=== PATIENT | female | born 1960 | race Caucasian/White ===

== ENCOUNTER 2024-06-13 01:27 | Day surgery (SDC) | payer MEDICARE, SELFPAY ==
[2024-06-07 10:14] VITALS: BMI 24.9
--- NOTE | 2024-06-07 10:29 | PC.NURSE ---
Addendum entered by Erma Calderón RN 06/07/24 10:39: Pt stated that Dr Gar aware pt had recent OH and is on DAPT and is ok to continue those meds for this procedure- she will not take them morning of, but will when she gets home. RADHA Original Note: Report to the Outpatient Waiting Room, entrance under the green pavilion located off [facility], at time ____0630am___ on date _06/13/24 . Planned Procedure Time: __0830am .? Time changes happen often and if your time is changed the preop area will call you the afternoon before. - You and your visitor will be asked to self-screen and do not enter if you have any COVID symptoms. Please call surgeon if you need to reschedule. - A mask is optional within the hospital at this time. Patients may have clear liquids (water, carbonated beverages, clear teas, apple juice) until 3 hours prior to surgery with a maximum of 20 ounces. - No food from midnight until time of surgery and no smoking. This includes no chewing gum, candy or mints.(0530am) Take only the following medications with a SIP of water on the morning of surgery: __Metoprolol and Lexapro, Tylenol if needed DO NOT STOP ANY OF YOUR OTHER PRESCRIPTION MEDICATIONS PRIOR TO SURGERY EXCEPT THE FOLLOWING Medications to discontinue per physician Hold MVI 3 days prior per Anesthesia Date to take last dose__06/09/24 Please no make-up, nail faroese, hairspray, perfume, deodorant, or body powder the day of surgery.? No jewelry (including any body piercings) or valuables the day of surgery, leave them at home.? Please take a shower or bath the night before, or the morning of, surgery with an antibacterial soap.? Wear comfortable, loose fitting clothing.? - Jewelry must be removed prior to entering the operating room.? Rings and piercings that are not removed may be cut off. - The hospital will not accept responsibility for valuables.? - Please leave all valuables, including medications, at home the day of surgery. If you are going home after surgery, a licensed four horse hitch driver must drive you home.? - NO public transportation without another adult if you receive anesthesia. - We recommend that an adult stay with you for 24 hours following discharge. - We also recommend that you do not drive, make important decision, drink alcoholic beverages, or take any drugs that were not prescribed by your health care provider for at least 24 hours after your discharge time. Follow any additional instructions given to you from your surgeon. Telephone instructions given to ___Patient and asked if any additional questions and then verbalized understanding. Patient advised to call surgeon office or pre surgery nurse liaison [phone] if any additional questions.
--- OUTSIDE RECORDS SUMMARY | 2024-06-13 01:34 | XMS_ITS | Encounter Summary ---
Author Organization [facility] Address [address] [place] [address]. [place] [address] [place] [address] Care Team Providers Care Dust Control Engineer Name Role Phone Carla Bunch MD Primary Care Provider [phone] Alejandra Monahan RN Unavailable [phone] Encounter Details Date Type Department Care Team (Latest Contact Info) Description 05/03/2023 [employer] Message Enc [facility] Medical Group Family & Internal Medicine [facility] [id number] [place] [phone] Carla Bunch MD [address] [place] [address]. [address] [place] [address] Escitalopram 10 MG daily. Social History Tobacco Use Types Packs/Day Years Used Date Smoking Tobacco: Never Smokeless Tobacco: Never Alcohol Use Standard Drinks/Week Comments Yes 0 (1 standard drink = 0.6 oz pur e alcohol) Occasionally - social AUDIT-C Answer Date Recorded Q1: How often do you have a drink containing alc ohol? Monthly or less 07/21/2020 Q2: How many drinks containi ng alcohol do you have on a typical day when you are drinking? 1 or 2 07/21/2020 Frequency of Binge Drinking Not on file 03/12/2020 PHQ-2 Answer Date Recorded Patient Health Questionnaire-2 Score 1 05/02/2023 Comments No Sex and Gender Information Value Date Recorded Sex Assigned at Not on file Legal Sex Female 8:27 PM CDT Gender Identity Not on file Sexual Orientation Not on file documented as of this encounter Functional Status * RETIRED Are you deaf or do you have serious difficulty hearing Answer Date of Assessment Author Status No 10/19/2021 6:06 AM CDT Activ e * RETIRED Are you blind or do you have serious difficulty seeing, even when wearing glasses? Answer Date of Assessment Author Status No 10/19/2021 6:06 AM CDT Activ e * Do you have serious difficulty walking or climbing stairs? Answer Date of Assessment Author Status No 10/19/2021 6:06 AM CDT Shannen Kingsley RN Active * Do you have difficulty dressing or bathing? Answer Date of Assessment Author Status No 10/19/2021 6:06 AM CDT Shannen Kingsley RN Active * Because of a physical, mental, or emotional condition, do you have difficulty doing errands alone such as visiting a doctor's office or shopping? Answer Date of Assessment Author Status No 10/19/2021 6:06 AM CDT Shannen Kingsley RN Active documented as of this encounter Mental Status * Because of a physical, mental, or emotional condition, do you have serious difficulty concentrating, remembering, or making decisions? Answer Entry Date Author Status No 10/19/2021 6:06 AM CDT Shannen Kingsley RN Active documented in this encounter Progress Notes * Kiana Hoang RN - 05/17/2023 10:23 AM CST Noted. UNT FINANCIAL MANAGER documented in this encounter Plan of Treatment Upcoming Encounters Date Type Department Care Team (Late st Contact Info) Description 06/29/2024 12:00 PM ACCOUNT FINANCIAL MANAGER Office Visit [facility] on [facility] [place] [address] [place], [place] [id number] Tiffany Olmos PA-C 3 [facility], [address] [place], [place] [id number] 07/11/2024 11:12 AM ACCOUNT FINANCIAL MANAGER Hospital Encounter [facility] [address] [place] [address] Rosalio Ordaz MD [address] [address] 07/11/2024 11:12 AM ACCOUNT FINANCIAL MANAGER - 07/11/2024 11:39 AM ACCOUNT FINANCIAL MANAGER Surgery [facility] [address] [place] [address] Rosalio Ordaz MD [address] [address] EGD 11/07/2024 10:00 AM CDT Office Visit [facility] Medical Group Family & Internal Medicine [address] [phone] [place] [address] [facility] [place]. [address] [place] [address] Scheduled Procedures Name Priority Associated Diagnoses Date/Ti me EGD Epigastric pain Nausea and vomiting, unspecified vomiting type Biliary colic 07/11/2024 11:12 AM ACCOUNT FINANCIAL MANAGER documented as of this encounter Visit Diagnoses Not on filedocumented in this encounter Additional Health Concerns Infection Onset Date Last Indicated Resolved Time COVID-19 Rule Out 05/05/2023 05/05/2023 05/05/2023 8:51 AM ACCOUNT FINANCIAL MANAGER COVID-19 Rule Out 05/05/2023 05/05/2023 05/05/2023 1:41 PM ACCOUNT FINANCIAL MANAGER Assessment Noted Time PHQ-9 Depression Total Score: 0 08/06/19 10:18 AM CDT documented as of this encounter Care Teams Dust Control Engineer Relationship Specialty [place] [address] [facility] [place] [address] PCP - General FAMILY PRACTICE 12/29/22 Alejandra Monahan, RN [address] [place] [address] Manager Dairy (Ambulatory) REGISTERED NURSE 03/20/24 documented as of this encounter
--- OUTSIDE RECORDS SUMMARY | 2024-06-13 01:34 | XMS_ITS | Encounter Summary ---
Author Organization [facility] Address [address] [place] [address]. [place] [address] [place] [address] Care Team Providers Care Direct Of Real Estate Name Role Phone Carla Bunch MD Primary Care Provider [phone] Alejandra Monahan RN Unavailable [phone] Encounter Details Date Type Department Care Team (Late st Contact Info) Description 07/20/2023 [employer] Message Enc [facility] Medical Group Family & Internal Medicine [facility] [id number] [place] [phone] Carla Bunch MD [address] [place] [address]. [address] [place] [address] BPs Social History Tobacco Use Types Packs/Day Years Used Date Smoking Tobacco: Never Passive Smoke Exposure: Never Smokeless Tobacco: Never Alcohol Use Standard [...] documented in this encounter Progress Notes * Antonella Bull NP - 07/20/2023 2:48 PM CST See attached. Thanks O INSTALLER AUTOMOBILE documented in this encounter Plan of Treatment Upcoming Encounters Date Type Department Care Team (Late st Contact Info) Description 06/29/2024 12:00 PM RADIO INSTALLER AUTOMOBILE Office Visit Brandi Pineda[facility] on [facility] [place] [address] [place], [place] [address] Tiffany Olmos PA-C 3 [facility], [address] [place], [place] [phone] 07/11/2024 11:12 AM RADIO INSTALLER AUTOMOBILE Hospital Encounter [facility] [address] [place] [address] Rosalio Ordaz MD [address] [address] 07/11/2024 11:12 AM RADIO INSTALLER AUTOMOBILE - 07/11/2024 11:39 AM RADIO INSTALLER AUTOMOBILE Surgery [facility] [address] [place] [address] Rosalio Ordaz MD [address] [address] EGD 11/07/2024 10:00 AM CDT Office Visit [facility] Medical Group Family & Internal Medicine - [place] [id number] [place] [phone] [place] [address] [facility]. [address] [place] [address] Scheduled Procedures Name Priority Associated Diagnoses Date/Ti me EGD Epigastric pain Nausea and vomiting, unspecified vomiting type Biliary colic 07/11/2024 11:12 AM RADIO INSTALLER AUTOMOBILE documented as of this encounter Visit Diagnoses Not on filedocumented in this encounter Additional Health Concerns Assessment Noted Time PHQ-9 Depression Total Score: 0 08/06/19 22 10:18 AM CDT documented as of this encounter Care Teams Direct Of Real Estate Relationship Specialty Start Date End Date Carla Bunch [place] [id number] [place] [address]. [address] [place] [address] PCP - General FAMILY PRACTICE 12/29/22 Alejandra Monahan, RN [address] [place] [address] Motor Bike Mechanic (Ambulatory) REGISTERED NURSE 03/20/24 documented as of this encounter
--- OUTSIDE RECORDS SUMMARY | 2024-06-13 01:34 | XMS_ITS | Encounter Summary ---
Author Organization [facility] Address [address] [place] [address]. [place] [address] [place] [address] Care Team Providers Care Small Order Cutter Name Role Phone Carla Bunch MD Primary Care Provider [phone] Encounter Details Date Type Department Care Team (Late st Contact Info) Description 06/07/2024 [employer] Message Enc [facility] Medical Group Family & Internal Medicine [facility] [phone] [place] [phone] Carla Bunch MD [address] [place] [address]. [address] [place] [address] Visit with Shrub Grower. Social History Tobacco Use Types Packs/Day Years Used Date Smoking Tobacco: Never Passive Smoke Exposure: Never Smokeless Tobacco: Never Alcohol Use Standard Drinks/Week Comments Yes 0 (1 standard drink = 0.6 oz pur e alcohol) 1 drink per week [facility] Utilities Answer Date Recorded In the past 12 months has e electric, gas, oil, or water [employer] threatened to shut off services in your home? No 03/19/2024 Humiliation, Afraid, Rape, and Kick questionnair e Answer Date Recorded Within the last year, have y ou been afraid of your partner or ex-partner? No 03/19/2024 Within the last year, have y ou been humiliated or emotionally abused in other ways by your partner or ex-partner? No Within the last year, have y ou been kicked, hit, slapped, or otherwise physically hurt by your partner or ex-partner? No 03/19/2024 Within the last year, have y ou been raped or forced to have any kind of sexual activity by your partner or ex-partner? No 03/19/2024 AUDIT-C Answer Date Recorded Q1: How often do you have a drink containing alc ohol? Monthly or less 07/21/2020 Q2: How many drinks containi ng alcohol do you have on a typical day when you are drinking? 1 or 2 07/21/2020 Frequency of Binge Drinking Not on file 12/2020 Overall Financial Resource Strain (CARDIA) Answe r Date Recorded How hard is it for you to pa y for the very basics like food, housing, medical care, and heating? Not hard at all 03/19/2024 PHQ-2 Answer Date Recorded Patient Health Questionnaire-2 Score 0 05/11/2024 Hunger Vital Sign Answer Date Recorded Within the past 12 months, y ou worried that your food would run out before you got the money to buy more. Never true 03/19/20 24 Within the past 12 months, t he food you bought just didn't last and you didn't have money to get more. Never true 03/19/2024 PRAPARE - Transportation Answer Date Re corded In the past 12 months, has l ack of transportation kept you from medical appointments or from getting medications? No 08/2023 In the past 12 months, has l ack of transportation kept you from meetings, work, or from getting things needed for daily living? No 03/19/2024 Housing Stability Vital Sign Answer Evan e Recorded In the last 12 months, was t here a time when you were not able to pay the mortgage or rent on time? No 03/19/2024 In the past 12 months, how m any times have you moved where you were living? 1 03/19/2024 At any time in the past 12 m [facility], were you homeless or living in a correction (including now)? No 03/19/2024 Comments No Sex and Gender Information Value Date Recorded Sex Assigned at Not on file Legal Sex Female 8:27 PM CDT Gender Identity Not on file Sexual Orientation Not on file documented as of this encounter Functional Status * Are you deaf or do you have serious difficulty hearing Answer Date of Assessment Author Status No 03/19/2024 5:07 PM Shara Noel RN Active * Are you blind or do you have serious difficulty seeing, even when wearing glasses? Answer Date of Assessment Author Status No 03/19/2024 5:07 PM Shara Noel RN Active * Do you have serious difficulty walking or climbing stairs? Answer Date of Assessment Author Status No 03/19/2024 5:07 PM Shara Noel RN Active * Do you have difficulty dressing or bathing? Answer Date of Assessment Author Status No 03/19/2024 5:07 PM Shara Noel RN Active * Because of a physical, mental, or emotional condition, do you have difficulty doing errands alone such as visiting a doctor's office or shopping? Answer Date of Assessment Author Status No 03/19/2024 5:07 PM Shara Noel RN Active documented as of this encounter Mental Status * Because of a physical, mental, or emotional condition, do you have serious difficulty concentrating, remembering, or making decisions? Answer Entry Date Author Status No 03/19/2024 5:07 PM Shara Noel RN Active documented in this encounter Plan of Treatment Upcoming Encounters Date Type Department Care Team (Late st Contact Info) Description 06/29/2024 12:00 PM AUTOMATIC PAD MAKING MACHINE OPERATOR Office Visit [facility] on [facility] [place] [address] [place] [address] Tiffany Olmos PA-C 3 [facility], [address] [place] [address] 07/11/2024 11:12 AM AUTOMATIC PAD MAKING MACHINE OPERATOR Hospital Encounter [facility] [address] [place] [address] Rosalio Ordaz MD 3 [facility] [address] [place] [address] 07/11/2024 11:12 AM AUTOMATIC PAD MAKING MACHINE OPERATOR - 07/11/2024 11:39 AM AUTOMATIC PAD MAKING MACHINE OPERATOR Surgery [facility] [address] [place] [address] Rosalio Ordaz MD [address] [address] EGD 11/07/2024 10:00 AM CDT Office Visit [facility] Medical Group Family & Internal Medicine - [place] [address] [place] [phone] [place] [address] [facility]. [address] [place] [address] Scheduled Procedures Name Priority Associated Diagnoses Date/Ti me EGD Epigastric pain Nausea and vomiting, unspecified vomiting type Biliary colic 07/11/2024 11:12 AM AUTOMATIC PAD MAKING MACHINE OPERATOR documented as of this encounter Visit Diagnoses Not on filedocumented in this encounter Additional Health Concerns Assessment Noted Time PHQ-9 Depression Total Score: 4 11/07/19 24 8:56 AM CDT documented as of this encounter Care Teams Small Order Cutter Relationship Specialty [place] [address] [facility]. [address] [place] [address] PCP - General FAMILY PRACTICE 12/29/22 documented as of this encounter
--- OUTSIDE RECORDS SUMMARY | 2024-06-13 01:34 | XMS_ITS | Clinical Summary ---
Author Organization [facility] Address [address] [place] [address]. [place] [address] [place] [address] Care Team Providers Care Biometry Teacher Name Role Phone Carla Grimes MD Primary Care Provider [phone] Allergies No known active allergies Medications Multiple Vitamins-Minerals (ALIVE ONCE DAILY WOMENS 50+ OR) Take 1 tablet by mouth daily. 08/14/19 21 Active docusate sodium (COLACE) 100 MG capsule Take 1 capsule (100 mg total) by mouth daily. 12/15/19 22 Active estradiol (ESTRACE) 1 MG tabletIndications :Menopause present Take 0.5 tablets (0.5 mg total) by mouth daily. 90 tablet 3 07/21/19 24 Active progesterone (PROMETRIUM) 100 MG capsuleIndication s:Menopause present Take 1 capsule (100 mg total) by mouth daily. 90 capsule 3 07/21/19 24 Active escitalopram (LEXAPRO) 10 MG tabletIndications :Depression with anxiety take 1 tablet by mouth every day 90 tablet 2 11/07/19 24 Active rizatriptan (MAXALT-SAXOPHONE TEACHER) 10 MG disintegrating tabletIndications :Periodic headache syndrome, not intractable Take 1 tablet (10 mg total) by mouth as needed for Migraine. May repeat in 2 hours if needed times one dose 27 tablet 3 11/07/19 24 Active acetaminophen CR (ACETAMINOPHEN 8 HOUR) 650 MG Tab CR 8 hr tablet Take 2 tablets (1,300 mg total) by mouth 2 (two) times a day. 01/25/20 24 Active metoprolol succinate ER (TOPROL-XL) 25 MG 24 hr tablet Take 1 tablet (25 mg total) by mouth daily. New dose 90 tablet 1 03/30/20 24 Active lisinopril (PRINIVIL) 10 MG tablet Take 1 tablet (10 mg total) by mouth every evening. 90 tablet 1 03/30/20 24 Active atorvastatin (LIPITOR) 40 MG tablet Take 1 tablet (40 mg total) by mouth nightly at bedtime. New dose 90 tablet 1 03/30/20 24 Active aspirin EC (ASPIRIN LOW DOSE) 81 MG tabletIndications :NSTEMI (non-ST elevated myocardial infarction) ([facility]) TAKE 1 TABLET BY MOUTH EVERY DAY 90 tablet 3 04/11/20 24 Active clopidogrel (PLAVIX) 75 MG tabletIndications :History of non-ST elevation myocardial infarction (NSTEMI) START IN MAY 2024. LOADING DOSE TAKE (300MG/ 4 TABLETS) THE FIRST DAY AND THEN 1 TABLET DAILY 95 tablet 06/05/19 25 Active ticagrelor (BRILINTA) 90 mg tablet Take 1 tablet (90 mg total) by mouth 2 (two) times daily. 60 tablet 1 03/30/20 24 025 Discontinued(Al ternate therapy) clopidogrel (PLAVIX) 75 MG tabletIndications :History of non-ST elevation myocardial infarction (NSTEMI) START IN MAY 2024. LOADING DOSE TAKE (300MG) THE FIRST DAY AND THEN 1 TABLET DAILY 34 tablet 05/11/20 24 025 Discontinued Active Problems Problem Noted Date Diagnosed Date Prediabetes 05/20/2024 History of non-ST elevation myocardial infarctio n (NSTEMI) 04/05/2024 Mild hyperlipidemia 03/30/2024 NSTEMI (non-ST elevated myoc ardial infarction) ([facility]) 03/19/2024 Epigastric pain 01/27/2024 Nausea and vomiting, unspecified vomiting type 0 01/27/2024 Biliary colic 01/27/2024 Small bowel obstruction ([facility]) 2021 Abdominal migraine, not intractable 04/05/2019 Microscopic hematuria 07/02/2014 Migraines 06/24/2014 Depression with anxiety 06/14/2013 Hypertension 06/14/2013 Resolved Problems Problem Noted Date Diagnosed Date Resolved Date Encounter for preventive health examination 12/14/2011 01/25/2020 Encounters Date Type Department Care Team Description 06/11/2024 Telephone [facility] Multispecialty Care - [facility] [address] [facility] [place] [address] Bradly Ordaz MD Prior Authorization ([id number]) 06/07/2024 MyChart Message Enc [facility] Internal Medicine [address] [address] Carla Grimes MD Visit with Vibration Analyst. 06/05/2024 [place] [address] Doretha Wayne RN 05/21/2024 12:14 PM PHARMACOEPIDEMIOLOGIST - 05/21/2024 11:59 PM PHARMACOEPIDEMIOLOGIST Hospital Encounter [facility] Ultrasound [address] [place] [address] Carla Grimes MD Discharge Disposition: Home or Self Care (Routine Discharge) 05/21/2024 Travel 05/14/2024 5:53 AM PHARMACOEPIDEMIOLOGIST - 05/14/2024 11:59 PM PHARMACOEPIDEMIOLOGIST Hospital Encounter [facility] Card[facility] Rehab [address] [place] [address] Marv Warren MD Discharge Disposition: Home or Self Care (Routine Discharge) 05/14/2024 Travel 05/11/2024 10:40 AM PHARMACOEPIDEMIOLOGIST Office Visit [facility] Family & Internal [address] [address] Carla Grimes MD Follow Up (6 month follow up. Concerns with discharge/blood vaginally since November ) 05/11/2024 [facility] [address] [place] [address] Ena Martinez RN Question 05/11/2024 Travel 05/07/2024 6:20 AM PHARMACOEPIDEMIOLOGIST - 05/07/2024 11:59 PM PHARMACOEPIDEMIOLOGIST Hospital Encounter [facility] [address] [place], [place] [address]Marv Minor MD Discharge Disposition: Home or Self Care (Routine Discharge) 05/07/2024 Travel 05/02/2024 6:17 AM PHARMACOEPIDEMIOLOGIST - 05/02/2024 11:59 PM PHARMACOEPIDEMIOLOGIST Hospital Encounter [facility] [address] [place], [place] [address]Marv Minor MD Discharge Disposition: Home or Self Care (Routine Discharge) 05/02/2024 Travel 04/30/2024 6:08 AM PHARMACOEPIDEMIOLOGIST - 04/30/2024 11:59 PM PHARMACOEPIDEMIOLOGIST Hospital Encounter [facility] [address] [place], [place] [address]Marv Minor MD Discharge Disposition: Home or Self Care (Routine Discharge) 04/30/2024 Travel 04/25/2024 6:07 AM PHARMACOEPIDEMIOLOGIST - 04/25/2024 11:59 PM PHARMACOEPIDEMIOLOGIST Hospital Encounter [facility] [address] [place], [place] [address]Marv Minor MD Discharge Disposition: Home or Self Care (Routine Discharge) 04/25/2024 Travel 04/23/2024 5:37 AM PHARMACOEPIDEMIOLOGIST - 04/23/2024 11:59 PM PHARMACOEPIDEMIOLOGIST Hospital Encounter [facility] [address] [place], [place] [address]Marv Minor MD Discharge Disposition: Home or Self Care (Routine Discharge) 04/23/2024 Travel 04/18/2024 5:52 AM PHARMACOEPIDEMIOLOGIST - 04/18/2024 11:59 PM PHARMACOEPIDEMIOLOGIST Hospital Encounter [facility] [address] [place], [place] [address]Marv Minor MD Discharge Disposition: Home or Self Care (Routine Discharge) 04/06/2024 [facility] [address] [facility] [address] [place] [phone] Bradly Ordaz MD Results 04/06/2024 MyChart Message Enc [facility]ty Care - [facility] [address] [facility] [address] [place] [phone] [facility] 04/04/2024 9:47 AM PHARMACOEPIDEMIOLOGIST - 04/04/2024 11:59 PM PHARMACOEPIDEMIOLOGIST Hospital Encounter [facility] [address] [place] [address] Bradly Ordaz MD Discharge Disposition: Home or Self Care (Routine Discharge) 04/04/2024 Travel 04/03/2024 [facility]phone [facility] [address] [place] [address] Marv Warren MD Surgical Clearance 04/01/2024 MyChart Message Enc [facility] [place] [address] [place] [phone] Bradly Ordaz MD Blood thinners 03/30/2024 11:00 AM PHARMACOEPIDEMIOLOGIST [facility] [address] [place] [address] Marv Warren MD Hospital Follow Up 03/30/2024 Travel 03/29/2024 3:20 PM PHARMACOEPIDEMIOLOGIST Office Visit [facility] Family [facility] Internal Medicine [facility] [address] [place] [phone] Carla Grimes MD [facility] 03/29/2024 8:15 AM PHARMACOEPIDEMIOLOGIST - 03/29/2024 11:59 PM PHARMACOEPIDEMIOLOGIST Hospital Encounter [facility] [address] [place], [place] [phone] Carla Grimes MD Discharge Disposition: Home or Self Care (Routine Discharge) 03/29/2024 Orders Only [facility] [address] [place] [address] Carla Grimes MD 03/29/2024 Travel 03/21/2024 MyChart Message Enc [facility] [address] [address] Bradly Ordaz MD Upcoming Abd Fluoro and EGD 03/21/2024 Patient Outreach [facility] [address] [address] Alejandra Monahan RN TCM (TCM MELINDA 03/19-03/20/24- NSTEMI) 03/20/2024 Scan [facility] Scanned, [facility] 03/20/2024 Patient Outreach [facility] [address] [phone] Alejandra Monahan RN Hospital Follow Up (TCM MELINDA admit 03/19/24- NSTEMI) 03/19/2024 8:55 AM PHARMACOEPIDEMIOLOGIST - 03/20/2024 12:01 PM PHARMACOEPIDEMIOLOGIST Hospital Encounter [facility] [place] [address] Carl Bradley MD Crawford, MD Feli Bernard Maaroof, MD Chest Pain Discharge Disposition: Home or Self Care (Routine Discharge) 03/19/2024 Travel 03/13/2024 Telephone [facility]pec[facility]ty Care - [facility] [address] [facility] [place] [address] Bradly Ordaz MD Results from Last 3 Months Immunizations Name Administration Dates Next Due FLUAD (IIV, Trivalent, 0.5 M L Pre-filled Syringe) 03/12/2024 Fluzone Adult - >Age 3 (Pref illed Syringe) 03/06/2019 Fluzone Adult Quad >3 Yrs (S thomas Dose Vial) 02/14/2020 Influenza (Generic) 02/20/2016,03/15/2015,2013 Influenza Adult (Generic) 04/04/2023,06/2021,03/25/2021,2016 MODERNA COVID-19 BIVALENT (1 2+), MRNA, LNP-S, PF 04/15/2022 MODERNA COVID-19 (12+), MRNA , LNP-S, PF, 50 MCG/0.5 ML (SPIKEVAX) 04/04/2023 PFIZER COVID-19 (SIMPSON CAP), MRNA, LNP-S, PF, 30 MCG/0.3 ML JAKE-SUCROSE, IM 09/05/2021 PFIZER COVID-19 (ORIGINAL FORMULATION, PURPLE CAP) mRNA, LNP-S, PF, 30 MCG/0.3 ML DOSE 02/23/2021,05/23/2020,05/02/2020 Pneumococcal (Prevnar 20) 05/11/2024 Prevnar(Pcv 7) 02/16/2023 Td (Tenivac) preservative free 05/17/2009 Tdap (Historical Only-select from magnify glass) 01/31/2020 Family History Medical History Relation Comments Cancer Father Diabetes Father Glaucoma Father Heart Disease Father Stent Hypertension Father COPD Mother Diabetes Mother Heart Disease Mother Hyperlipidemia Mother Hypertension Mother Stroke Mother Breast Cancer Neg Hx Relation Status Comments Father Mother Social History Tobacco Use Types Packs/Day Years Used Date Smoking Tobacco: Never Passive Smoke Exposure: Never Smokeless Tobacco: Never Tobacco Cessation:Counseling Given: Not Answered Alcohol Use Standard Drinks/Week Comments Yes 0 (1 standard drink = 0.6 oz pur e alcohol) 1 drink per week [facility] Utilities Answer Date Recorded In the past 12 months has e [employer], gas, oil, or water [employer] threatened to shut off services in your [...] any time in the past 12 [facility], were you homeless or living in a half-way (including now)? No 03/19/2024 Comments No Sex and Gender Information Value Date Recorded Sex Assigned at Not on file Legal Sex Female 8:27 PM CDT Gender Identity Not on file Sexual Orientation Not on file Last Filed Vital Signs Vital Sign Reading Time Taken Comments Blood Pressure 138/82 05/11/2024 10:26 AM PHARMACOEPIDEMIOLOGIST Pulse 62 05/11/2024 10:05 AM PHARMACOEPIDEMIOLOGIST Temperature 36.3 ??C (97.4 ??F) 05/11/2024 10:[address] Respiratory Rate 18 05/11/2024 10:05 AM PHARMACOEPIDEMIOLOGIST Oxygen Saturation 98% 05/11/2024 10:05 AM PHARMACOEPIDEMIOLOGIST Inhaled Oxygen Concentration - - Weight 68.8 kg (151 lb 9.6 oz) 05/11/2024 10:05 AM PHARMACOEPIDEMIOLOGIST Height 165.1 cm (5' 5 ) 05/11/2024 10:05 AM PHARMACOEPIDEMIOLOGIST Body Mass Index 25.23 05/11/2024 10:05 AM PHARMACOEPIDEMIOLOGIST Plan of Treatment Upcoming Encounters Date Type Department Care Team (Late st Contact Info) Description 06/29/2024 12:00 PM PHARMACOEPIDEMIOLOGIST Office Visit [facility] [place] [address] [place] [address] Tiffany Olmos PA-C [address] [facility] [place] [address] 07/11/2024 11:12 AM PHARMACOEPIDEMIOLOGIST Hospital Encounter [facility] [address] [place] [address] Bradly Ordaz MD [address] [facility] [address] [place] [address] 07/11/2024 11:12 AM PHARMACOEPIDEMIOLOGIST - 07/11/2024 11:39 AM PHARMACOEPIDEMIOLOGIST Surgery [facility] [address] [place] [address] Bradly Ordaz MD [address] [facility] [address] [place] [address] EGD 11/07/2024 10:00 AM CDT Office Visit [facility] Family & Internal Medicine - [place] [address] [place] [address] [place] [address] [facility] [place] [address] Scheduled Procedures Name Priority Associated Diagnoses Date/Ti me EGD Epigastric pain Nausea and vomiting, unspecified vomiting type Biliary colic 07/11/2024 11:12 AM PHARMACOEPIDEMIOLOGIST Health Maintenance Due Date Last Done Comments Hepatitis C 01/02/1976 Zoster Vaccines (1 of 2) 01/02/2008 RSV Immunization or 60+ Years (1 - Risk 60-74 years 1-dose series) 2018 Annual Medicare Wellness Visit 2023 PHQ-2 (Physician [place]) 05/16/2024 05/11/2024 Mammogram Screening 02/14/2026 02/15/2024, 11/24/2021, 11/19/2020, Additional history exists Colorectal Cancer Screening Colonoscopy (10 Years) 12/27/2028 12/27/2018 DTaP, Tdap and Td Vaccines (2 - Td or Tdap) 01/30/2030 01/31/2020, 05/17/2009 Dexa Scan (General) Completed 08/14/2021 COVID-19 Vaccine Completed 03/12/2024, , 04/15/2022, Additional history exists Influenza Adult Completed 03/12/2024, 03/17, 03/17/2022, Additional history exists Pneumococcal Vaccine: 65+ Years Completed 05/11/2024 Meningococcal B Vaccine Aged Out No l onger eligible based on patient's age to complete this topic Meningococcal Vaccine Aged Out No an alexus eligible based on patient's age to complete this topic RSV Immunizations Under 20 Months Aged Out No longer eligible based on patient's age to complete this topic Procedures Procedure Name Priority Date/Time Associated Diagnosis Comments US PELVIC NON OB COMP TA+TV Routine 05/21/2024 1:24 PM PHARMACOEPIDEMIOLOGIST Vaginal bleeding XR SMALL BOWEL Routine 04/04/2024 11:46 AM PHARMACOEPIDEMIOLOGIST Epigastric pain Nausea and vomiting, unspecified vomiting type CBC W/DIFF AUTOMATED Routine 03/29/2024 8:26 AM PHARMACOEPIDEMIOLOGIST Anemia LIPID PANEL Routine 03/20/2024 3:26 AM PHARMACOEPIDEMIOLOGIST HEMOGLOBIN, GLYCOSYLATED Routine 03/20/2024 3:26 AM PHARMACOEPIDEMIOLOGIST MAGNESIUM Routine 03/20/2024 3:26 AM PHARMACOEPIDEMIOLOGIST BASIC METABOLIC PANEL Routine 03/20/2024 3:26 AM PHARMACOEPIDEMIOLOGIST CBC W/DIFF AUTOMATED Routine 03/20/2024 3:26 AM PHARMACOEPIDEMIOLOGIST POCT ACTIVATED CLOTTING TIME - ISTAT DOCKED DEVICE Routine 03/19/2024 5:29 PM PHARMACOEPIDEMIOLOGIST ECG 12-LEAD STAT 03/19/2024 4:52 PM PHARMACOEPIDEMIOLOGIST XA LHC POSS STAT 03/19/2024 4:47 PM PHARMACOEPIDEMIOLOGIST NSTEMI (non-ST elevated myocardial infarction) ([facility]) USE ECHOCARDIOGRAM W CON STAT 03/19/2024 11:44 AM PHARMACOEPIDEMIOLOGIST PROTHROMBIN TIME, VENOUS STAT 03/19/2024 10:34 AM PHARMACOEPIDEMIOLOGIST PARTIAL THROMBOPLASTIN TIME,PTT STAT 03/19/2024 10:34 AM PHARMACOEPIDEMIOLOGIST TROPONIN, QUANT STAT 03/19/2024 10:34 AM PHARMACOEPIDEMIOLOGIST TROPONIN, QUANT STAT 03/19/2024 9:21 AM PHARMACOEPIDEMIOLOGIST LIPASE STAT 03/19/2024 9:21 AM PHARMACOEPIDEMIOLOGIST D-DIMER, QUANTITATIVE STAT 03/19/2024 9:21 AM PHARMACOEPIDEMIOLOGIST COMPREHENSIVE METABOLIC PANEL STAT 03/19/2024 9:21 AM PHARMACOEPIDEMIOLOGIST CBC W/DIFF AUTOMATED STAT 03/19/2024 9:21 AM PHARMACOEPIDEMIOLOGIST XR CHEST PA+LAT STAT 03/19/2024 9:03 AM PHARMACOEPIDEMIOLOGIST ECG 12-LEAD Routine 03/19/2024 8:52 AM PHARMACOEPIDEMIOLOGIST MG SCREENING W SEBASTIEN HEBER DIGI Routine 02/15/2024 12:30 PM CDT Screening mammogram for breast cancer BONE DENSITY/DEXA Routine 08/14/2021 2:4 2 PM CDT At risk for decreased bone density COLONOSCOPY/EGD GENERIC (SCAN ORDER) Routine 12/27/2018 from Last 3 Months or Most Recently Relevant to Health Maintenance Results * US PELVIC NON OB COMP TA+TV (05/21/2024 1:24 PM PHARMACOEPIDEMIOLOGIST) Anatomical Region Laterality Modality Pelvis Ultrasound 05/21/2024 2:39 PM PHARMACOEPIDEMIOLOGIST Impressions 05/21/2024 2:44 PM PHARMACOEPIDEMIOLOGIST IMPRESSION:===== ?? 1. ??Thickened complex endometrial stripe with multiple cystic areas and color flow enhancement. ??Findings are suspicious for polyp, hypertrophy, or neoplasm. 2. ??Subtle heterogeneous mass in the right ovary suspected. ??Neoplasm in this area is not excluded. Referred By: CARLA GRIMES Interpreted By: Epifanio Shore MD, 05/21/2024 2:39 PM Narrative 05/21/2024 2:44 PM PHARMACOEPIDEMIOLOGIST [facility] [address] [place] [address] EXAMINATION: Non-OB pelvic ultrasound EXAM DATE/TIME: 05/21/2024 12:26 PM REASON FOR EXAM: ??VAGINAL BLEEDING ?? COMPARISON: None TECHNIQUE: transabdominal and Transvaginalultrasound evaluation of the pelvic contents was performed for analysis of grayscale and color Doppler imaging characteristics. FINDINGS: The uterus measures 5.5 x 2.4 x 3.9 cm. ??Endometrial stripe complex measures 1.0 cm in sagittal thickness. ??This is heterogeneous. ??Multiple cystic areas are seen particularly in the lower uterine segment and cervical area. ??Color-flow enhancement internally is noted. The right ovary measures 1.9 x 2.6 x 2.1 cm. ??Internal color-flow enhancement spectral Doppler waveform is noted. ??Internal mass which is slightly heterogeneous measures 1.8 x 1.7 cm x 2.0 cm. The left ovary measures 1.1 x 1.9 x 0.8 cm. ??Internal color-flow enhancement spectral Doppler waveform in the left ovary is suspected. No pelvic fluid is seen. . ===== Procedure Note Epifanio Shore MD - 05/21/2024 [facility] [address] [address] EXAMINATION: Non-OB pelvic ultrasound EXAM DATE/TIME: 05/21/2024 12:26 PM REASON FOR EXAM: VAGINAL BLEEDING COMPARISON: None TECHNIQUE: transabdominal and Transvaginalultrasound evaluation of thepelvic contents was performed for analysis of grayscale and color Dopplerimaging characteristics. FINDINGS: The uterus measures 5.5 x 2.4 x 3.9 cm. Endometrial stripecomplex measures 1.0 cm in sagittal thickness. This is heterogeneous.Multiple cystic areas are seen particularly in the lower uterine segmentand cervical area. Color-flow enhancement internally is noted. The right ovary measures 1.9 x 2.6 x 2.1 cm. Internal color-flowenhancement spectral Doppler waveform is noted. Internal mass which isslightly heterogeneous measures 1.8 x 1.7 cm x 2.0 cm. The left ovary measures 1.1 x 1.9 x 0.8 cm. Internal color-flowenhancement spectral Doppler waveform in the left ovary is suspected. No pelvic fluid is seen. . ===== IMPRESSION:===== 1. Thickened complex endometrial stripe with multiple cystic areas andcolor flow enhancement. Findings are suspicious for polyp, hypertrophy,or neoplasm. 2. Subtle heterogeneous mass in the right ovary suspected. Neoplasm inthis area is not excluded. Referred By: CARLA GRIMES Interpreted By: Epifanio Shore MD, 05/21/2024 2:39 PM Carla Grimes MD ULTRASOUND Final Result * XR SMALL BOWEL (04/04/2024 11:46 AM PHARMACOEPIDEMIOLOGIST) Anatomical Region Laterality Modality Abdomen, Pelvis Radiographic Kanwal ging, Radiographic Imaging 04/04/2024 11:4 7 AM PHARMACOEPIDEMIOLOGIST Impressions 04/04/2024 12:19 PM PHARMACOEPIDEMIOLOGIST IMPRESSION: Grossly normal appearance to the small bowel. No bowel obstruction or intraluminal lesions. Freely movable small bowel on palpation. Rapid transit of contrast from the stomach to the rectum at 15 minutes. Ordered By: BRADLY ORDAZ Interpreted By: Matthew Cortes, 04/04/2024 11:47 AM Narrative 04/04/2024 12:19 PM PHARMACOEPIDEMIOLOGIST [address] [place] [address] IMAGING STUDIES: XR SMALL BOWEL ? DATE: 04/04/2024 10:15 AM CLINICAL HISTORY: abd pain ?? . ??Cholelithiasis. Epigastric pain COMPARISON: No Comparisons. Correlation with CT abdomen and pelvis of 10/19/2021 FINDINGS: . After oral administration of 355 mL of thin barium, immediate images demonstrates grossly normal appearance to the stomach and proximal small bowel. 1 minute of fluoroscopic time utilized. 4 fluoroscopic spot films obtained Image obtained at 15 minutes post ingestion demonstrated contrast within the rectum. Rapid transit through the small bowel. I palpated the entire small bowel without gross abnormality. Specifically no distinct abnormality in the right lower quadrant where there was suspected to be probable transition point for partial bowel obstruction on above-stated CT.. Grossly normal appendix. Procedure Note Shaheed Cortes MD - 04/04/2024 [facility] [address] [place] [address] IMAGING STUDIES: XR SMALL BOWEL DATE: 04/04/2024 10:15 AM CLINICAL HISTORY: abd pain . Cholelithiasis. Epigastric pain COMPARISON: No Comparisons. Correlation with CT abdomen and pelvis of10/19/2021 FINDINGS: . After oral administration of 355 mL of thin barium, immediate imagesdemonstrates grossly normal appearance to the stomach and proximal smallbowel. 1 minute of fluoroscopic time utilized. 4 fluoroscopic spot filmsobtained Image obtained at 15 minutes post ingestion demonstrated contrast withinthe rectum. Rapid transit through the small bowel. I palpated the entire small bowel without gross abnormality. Specificallyno distinct abnormality in the right lower quadrant where there wassuspected to be probable transition point for partial bowel obstruction onabove-stated CT.. Grossly normal appendix. IMPRESSION: Grossly normal appearance to the small bowel. No bowel obstruction orintraluminal lesions. Freely movable small bowel on palpation. Rapid transit of contrast from the stomach to the rectum at 15 minutes. Ordered By: BRADLY ORDAZ Interpreted By: Matthew Cortes, 04/04/2024 11:47 AM Bradly Ordaz MD FLUOROSCOPY Final Result * (ABNORMAL) CBC W/DIFF AUTOMATED (03/29/2024 8:26 AM PHARMACOEPIDEMIOLOGIST) Only the most recent of3 resultswithin the time period is included. WBC 5.96 4.4 - 11.0 x10'3/uL 03/29/2024 9:10 AM [facility] RBC 4.65 4.50 - 5.10 x10'6/uL 03/29/2024 9:10 AM [facility] HGB 12.7 12.3 - 15.3 G/DL 03/29/2024 9:10 AM [facility] HCT 39.4 35.9 - 44.6 % 03/29/2024 9:10 AM [facility] MCV 84.7 80.0 - 96.0 FL 03/29/2024 9:10 AM [facility] MCH 27.3 25.3 - 30.9 PG 03/29/2024 9:10 AM [facility] MCHC 32.2 31.0 - 34.1 G/DL 03/29/2024 9:10 AM [facility] RDW 15.9(H) 12.4 - 15.1 % 03/29/2024 9:10 AM [facility] PLT 267 151 - 353 x10'3/uL 03/29/2024 9:10 AM [facility] MPV 10.4 9.6 - 12.0 FL 03/29/2024 9:10 AM [facility] RBC MORPHOLOGY NORMAL 03/29/2024 9:10 AM [facility] PLT MORPH. NORMAL 03/29/2024 9:10 AM [facility] WBC MORPHOLOGY NORMAL 03/29/2024 9:10 AM [facility] LYMPHOCYTES % 26.0 15.8 - 45.0 % 03/29/2024 9:10 AM [facility] NEUTROPHILS % 58.7 42.1 - 71.9 % 03/29/2024 9:10 AM [facility] MONOCYTES % 8.7 5.7 - 12.5 % 03/29/2024 9:10 AM [facility] EOSINOPHILS 5.4 0.0 - 5.6 % 03/29/2024 9:10 AM [facility] BASOPHILS 1.0 0.0 - 1.3 % 03/29/2024 9:10 AM [facility] ABS. NEUTROPHILS 3.50 1.40 - 6.00 x10'3/uL 03/29/2024 9:10 AM [facility] IMMATURE GRANS % 0.2 0.0 - 0.5 % 03/29/2024 9:10 AM [facility] ABS. LYMPHOCYTES 1.55 0.80 - 4.70 x10'3/uL 03/29/2024 9:10 AM PHARMACOEPIDEMIOLOGIST [facility] 03/29/2024 8:26 AM PHARMACOEPIDEMIOLOGIST Carla Grimes MD LABORATORY Final Result Performing Organization Address City/[facility]/ZIP Co de Phone Number [facility] [address] [place] [address], [place] [phone] * (ABNORMAL) HEMOGLOBIN, GLYCOSYLATED (03/20/2024 3:26 AM PHARMACOEPIDEMIOLOGIST) HGB A1C 6.1(H) <5.7 % 03/20/2024 7:56 AM PHARMACOEPIDEMIOLOGIST [facility] Comment: ADA GUIDELINES 2010 5.7 TO 6.4% INCREASED RISK OF DIABETES > OR = 6.5% CONSISTENT WITH DIABETES ESTIMATED AVG GLUCOSE 128 mg/dL 03/20/2024 7:56 AM PHARMACOEPIDEMIOLOGIST [facility] 03/20/2024 3:26 AM PHARMACOEPIDEMIOLOGIST Marv Warren MD LABORATORY Final Result [facility] [address] [place] [address], [place] [phone] * (ABNORMAL) BASIC METABOLIC PANEL (03/20/2024 3:26 AM PHARMACOEPIDEMIOLOGIST) GLUCOSE 86 70 - 99 MG/DL 03/20/2024 5:18 AM PHARMACOEPIDEMIOLOGIST [facility] BUN 14 7 - 18 MG/DL 03/20/2024 5:18 AM PHARMACOEPIDEMIOLOGIST [facility] CREATININE S/P/B 0.83 0.55 - 1.02 MG/DL 03/20/2024 5:18 AM PHARMACOEPIDEMIOLOGIST [facility] SODIUM S/P/B 138 136 - 145 MMOL/L 03/20/2024 5:18 AM [facility] POTASSIUM S/P/B 4.2 3.5 - 5.1 MMOL/L 03/20/2024 5:18 AM [facility] CHLORIDE S/P/B 107 97 - 115 MMOL/L 03/20/2024 5:18 AM [facility] CO2 25.6 21 - 32 MMOL/L 03/20/2024 5:18 AM [facility] CALCIUM S/P/B 8.7 8.5 - 10.1 MG/DL 03/20/2024 5:18 AM [facility] ANION GAP 5.4 2 - 10 MMOL/L 03/20/2024 5:18 AM [facility] BUN CREATININE RATIO 16.9 6 - 26 03/20/2024 5:18 AM [facility] GFR ESTIMATE 78(L) >90 ML/MIN/1.7 3 M2 03/20/2024 5:18 AM [facility] Comment: NOTE: eGFR is not calculated for patients <18 years of age or gender unknown. This is an estimated GFR calculation using the new CKD EPI creatinine equation without race and so does not require a correction factor for race. This estimated GFR should not be used for calculating drug doses. 03/20/2024 3:26 AM PHARMACOEPIDEMIOLOGIST us Marv Warren MD LABORATORY Final Result [facility] [address] [place] [address], * (ABNORMAL) LIPID PANEL (03/20/2024 3:26 AM PHARMACOEPIDEMIOLOGIST) CHOLESTEROL 155 <200 MG/DL 03/20/2024 5:18 AM [facility] TRIGLYCERIDES 152(H) <150 MG/DL 03/20/2024 5:18 AM [facility] HDL 51 >40.0 MG/DL 03/20/2024 5:18 AM [facility] LDL (CALCULATED) 74 <100 MG/DL 03/20/2024 5:18 AM [facility] NON HDL CHOLESTEROL 104 <130 MG/DL 03/20/2024 5:18 AM [facility] CHOL/HDL RATIO 3.0 0.0 - 4.5 03/20/2024 5:18 AM [facility] VLDL CALCULATION 30 5 - 55 MG/DL 03/20/2024 5:18 AM [facility] LIPID INTERPRETATION 03/20/2024 5:18 AM [facility] Comment: NIH CONCENSUS REPORT RECOMMENDATIONS: ?ADULT ?CHILD ??LOW RISK: ?CHOLESTEROL ? <200 ? <170 ?TRIGLYCERIDE ?<150 ?--- ?HDL ? >=60 ?--- ?LDL ? <100 ? <110 ??BORDERLINE: ?CHOLESTEROL ? 200-239 ?? 170-199 ?TRIGLYCERIDE ?150-199 ? --- ?HDL ?40-59 ?--- ?LDL ? 100-159 ?? 110-129 ??HIGH RISK: ?CHOLESTEROL ? >=240 ?>=200 ?TRIGLYCERIDE ?>=200 ? --- ?HDL ?<40 ?--- ?LDL ? >=160 ?>=130 03/20/2024 3:26 AM PHARMACOEPIDEMIOLOGIST Marv Warren MD LABORATORY Final Result Performing Organization Address [facility] de Phone Number [facility] [address] [place] [address], * MAGNESIUM (03/20/2024 3:26 AM PHARMACOEPIDEMIOLOGIST) [facility] MAGNESIUM 2.2 1.8 - 2.4 MG/DL 03/20/2024 5:18 AM PHARMACOEPIDEMIOLOGIST [facility] 03/20/2024 3:26 AM PHARMACOEPIDEMIOLOGIST Marv Warren MD LABORATORY Final Result Performing Organization Address [facility] de Phone Number [facility] [address] [place] [address], * (ABNORMAL) POCT ACTIVATED CLOTTING TIME - ISTAT DOCKED DEVICE (03/19/2024 5:29 PM PHARMACOEPIDEMIOLOGIST) [facility] ACTIVATED CLOTTING TIME (ACT) 253(H) 74 - 125 SEC 03/20/2024 7:54 AM PHARMACOEPIDEMIOLOGIST [facility] [employer] ARCHITECT CODE [phone] 03/20/2024 7:54 AM PHARMACOEPIDEMIOLOGIST [facility] 03/19/2024 5:29 PM PHARMACOEPIDEMIOLOGIST Jensen Edmond MD POCT ORDERABLES - DEVICE Final Result [facility] [address] [facility] [place] [address], * ECG 12 lead (03/19/2024 4:52 PM PHARMACOEPIDEMIOLOGIST) Only the most recent of2 resultswithin the time period is included. 03/19/2024 4:52 PM PHARMACOEPIDEMIOLOGIST Narrative [facility] (MELINDA) RAD - 03/20/2024 10:41 PM PHARMACOEPIDEMIOLOGIST ?[facility] ? [address] [facility] ? Test Date: ?2024-03-19 Pat Name: ? KENYETTA DOVE ?Department: ?? 40 ? Room: ? B444 Gender: ? Female ? Director Perioperative: ?? : ?1960 ? Requested By: MARV WARREN Order Number: [id number] ? Reading : ?? Efrain Palacio ? Measurements Intervals ?Acampo ? Rate: ? 62 ? P: ?62 TX: ? 166 ?QRS: ?45 QRSD: ? 75 ? T: ?54 QT: ? 430 ? QTc: ?440 ? Interpretive Statements SINUS RHYTHM NONSPECIFIC T-WAVE ABNORMALITY Compared to ECG 03/19/2024 08:52:31 T-wave abnormality now present MACOEPIDEMIOLOGIST Procedure Note Efrain Palacio MD - 03/20/[address] [facility] [facility] Test Date: 2024-03-19 Pat Name: KENYETTA DUNGANNON Department: 40 Room: B444 Gender: Female Director Perioperative: : 1960 Requested By: MARV WARREN Order Number: [id number] Reading MD: Efrain Palacio Measurements Intervals Acampo Rate: 62 P: 62 TX: 166 QRS: 45 QRSD: 75 T: 54 QT: 430 QTc: 440 Interpretive Statements SINUS RHYTHM NONSPECIFIC T-WAVE ABNORMALITY Compared to ECG 03/19/2024 08:52:31 T-wave abnormality now present MACOEPIDEMIOLOGIST us Marv Warren MD ECG ORDERABLES Final Result [facility] (MELINDA) RAD * XA LHC POSS (03/19/2024 4:47 PM PHARMACOEPIDEMIOLOGIST) Anatomical Region Laterality Modality Cardiac Office Sweeper 03/19/2024 4:00 PM PHARMACOEPIDEMIOLOGIST us Marv Warren MD WHITING CAN WORKER Final Result * USE ECHOCARDIOGRAM W CON (03/19/2024 11:44 AM PHARMACOEPIDEMIOLOGIST) Anatomical Region Laterality Modality NA Echocardiogram 03/19/2024 12:0 9 PM PHARMACOEPIDEMIOLOGIST Narrative 03/19/2024 12:22 PM PHARMACOEPIDEMIOLOGIST ?Echocardiography Report Pat.Name: ??KENYETTA DOVE ?Pat.ID: ?[id number] ? St.Date: ?? 03/19/2024 ? Exam Time: 12:09:00 PM ? Study Type:ECHO WITH CARDIAC DOPPLER COMP Height: ?65 in ? Weight: ?150 lb ?BSA: ? 1.75 m2 ?Age: ??1960,64Y ? Sex: ? F ? BP: ?154/97 ?HR: ?59 bpm ? Sonogrphr: Loretta Chowdary [facility] Pat. Stat.:Inpatient ? Room: ?ER14 ? Reason for Study:NSTEMI ? Procedures: 2D, M-mode, Doppler, Color Flow, Definity was used to enhance endocardial definition. The study quality is technically adequate. Race: ?W ? ++++++++++++++++++++++++++++++++++++ SUMMARY: ++++++++++++++++++++++++++++++++++++ The left ventricular systolic function is normal. Estimated left ventricular ejection fraction is 65-70%. Left ventricular diastolic function is abnormal (grade 1 - impaired relaxation). Basal Inferior, Mid Inferior gonsales are mildly hypokinetic. ?? Normal wall motion in all other gonsales. No significant valvular abnormalities. ++++++++++++++++++++++++++++++++++++ FINDINGS: ++++++++++++++++++++++++++++++++++++ LV: ? The left ventricular size is normal. The left ventricular ?systolic function is normal. Estimated left ventricular ?ejection fraction is 65-70%. There is no left ventricular ?hypertrophy. Left ventricular diastolic function is abnormal ?(grade 1 - impaired relaxation). Basal Inferior, Mid ?Inferior ognsales are mildly hypokinetic. Normal wall motion in ?all other gonsales. RV: ? The right ventricle size is normal. The right ventricular ?function is normal. IVS: ?No evidence of ventricular septal defect. Asymmetric ?hypertrophy of the left ventricular basal septum consistent ?with sigmoid septum(normal variant) is noted. LA: ? Left atrial size is normal. RA: ? The right atrial size is normal. IAS: ?Atrial septum appears intact. KAYLA: ? No evidence of pericardial effusion. AO: ? Aorta is normal. SVn: ?Inferior vena cava is normal. Inferior vena cava shows >50% ?collapse with respiration consistent with normal right ?atrial pressure. AV: ? The aortic valve is trileaflet. No evidence of aortic valve ?stenosis. No evidence of aortic valve regurgitation. MV: ? No evidence of significant mitral regurgitation. No evidence ?of mitral stenosis. Mildly calcified posterior mitral ?annulus. PV: ? No evidence of pulmonic valve stenosis. No evidence of ?pulmonic regurgitation. TV: ? Structurally normal tricuspid valve. A trace of tricuspid ?regurgitation. No evidence of tricuspid valve stenosis. ++++++++++++++++++++++++++++++++++++ MEASUREMENTS: ++++++++++++++++++++++++++++++++++++ ?DOPPLER LVOT ?? LVOTpkPG ? 5 mmHg ?LVOTmnPG ? 2 mmHg LVOTpkVel ?108 cm/s (70-110) LVOT SV ? 72 ml ?? LVOT TVI ?25.5 cm ? Right Atrium ?? RA Press ? 3 mmHg ?Ervin's Disk ? 20 ? Pulmonary Veins ?? PVnpkVeld ? 52.5 cm/s ?PVnVs/Vd ? 1.5 ? PVnpkVels ? 78.1 cm/s ? AV Forward Flow AV TVI ?29.2 cm ?AV pkPG ?6 mmHg AV pkVel ? 125 cm/s (100-170) Area (TVI) ?2.48 cm2 ??(3-5)* AV mnPG ?3 mmHg ?Area (Arvin) ?2.45 cm2 ??(3- 5)* MV Forward Flow MV DeTm ?190 msec ?MV pkE ?92.9 cm/s (60- 130) MV E/A ? 1.1 ? MV pkA ?84.1 cm/s PV Forward Flow PV pkVel ?73.1 cm/s (60-90) ??PV AC ?164 msec PV pkPG ?2 mmHg ? Lat E' ?? Lat e ? 9.03 cm/s ? Lat E/E' ?? Lat E/e ? 10.3 ? Med E' ?? Med e ? 7.72 cm/s ? Med E/E' ?? Med E/e ? 12 ? Aortic Valve ?? Aortic Valve Ar ??1.42 ?Aortic Valve Ve ??0.86 ? PV Antegrade Flow Acceleration Sl ?? 403 cm/s2 ? Right Ventricle ?? Right Ventricle ??11.9 cm/s ?2D Left Ventricle ?? LVIDd ?4.2 cm ?? (3.6-5.2) LV ESV ?31.9 ml ?? LVIDs ?2.6 cm ?? (2.3-3.9) LV ESV ?25.8 ml ?? LngAxd ?7.72 cm ?LVESV BP ?28.7 ml ?? LngAxd ?7.14 cm ?LV EF ? 68 % ?? LV EDV ?99.8 ml ?LV EF ? 68.8 % ?? LV EDV ?82.7 ml ?LV EF BP ?69.6 % ?? LVEDV BP ?94.4 ml ?LV SV ? 67.8 ml ?? LngAxs ?5.63 cm ?LV SV ? 56.9 ml ?? LngAxs ?5.59 cm ?LV SV BP ?65.7 ml ?? LVPW ?? LVPWd ?0.9 cm ? Ventricular Septum ?? IVSd ? 0.9 cm ? Left Atrium ?? LA VOLBP ?35.4 ml ? Aorta ?? Ao Rtd ? 3.2 cm ? Ao Asc ? 3.1 cm ?? (2.1-3.4) LVOT ?? LVOT ? 1.9 cm ?LVOTArea ?2.84 cm2 Ratios ?? IVS Inferior vena cava ?? IVC Diam ?15 mm ? LA Biplane LAVol I BP ?20.2 ml/m2 ? RA Single Plane Right Atrium MO ??14.8 mm ? Right Atrium Sy ??28.4 ml ?? Right Atrium Sy ??42.5 mm ? Right Atrium Sy ??16.2 ml/m2 Right Atrium Sy ??12.2 cm2 ? Right Ventricle ?? Right Ventricle ?32 mm ? Right Ventricle ?25 mm ?? Major Acampo ?59 mm ?MMODE TA ?? Tricuspid Annul ??21.7 mm ? ++++++++++++++++++++++++++++++++++++ WALL MOTION: ++++++++++++++++++++++++++++++++++++ RESTING WALL MOTION: Basal Inferior, Mid Inferior gonsales are mildly hypokinetic. ?? Normal wall motion in all other gonsales. Wall Index = 1.1 <Electronic Signature> 03/19/2024 12:22 PM Brooklyn Mills M.D. Procedure Note Brooklyn Mills MD - 03/19/2024 Echocardiography Report Pat.Name: KENYETTA DOVE Pat.ID: [id number] .Date: 03/19/2024 Exam Time: 12:09:00 PM Study Type:ECHO WITH CARDIAC DOPPLER COMP Height: 65 in Weight: 150 lb BSA: 1.75 m2 Age: 8 1960,64Y Sex: F BP: 154/97 HR: 59 bpm Sonogrphr: Loretta Chowdary [facility] Pat. Stat.:Inpatient Room: ER14 Reason for Study:NSTEMI Procedures: 2D, M-mode, Doppler, Color Flow, Definity was used to enhance endocardial definition. The study quality is technically adequate. Race: W ++++++++++++++++++++++++++++++++++++ SUMMARY: ++++++++++++++++++++++++++++++++++++ The left ventricular systolic function is normal. Estimated left ventricular ejection fraction is 65-70%. Left ventricular diastolic function is abnormal (grade 1 - impaired relaxation). Basal Inferior, Mid Inferior gonsales are mildly hypokinetic. Normal wall motion in all other gonsales. No significant valvular abnormalities. ++++++++++++++++++++++++++++++++++++ FINDINGS: ++++++++++++++++++++++++++++++++++++ LV: The left ventricular size is normal. The left ventricular systolic function is normal. Estimated left ventricular ejection fraction is 65-70%. There is no left ventricular hypertrophy. Left ventricular diastolic function is abnormal (grade 1 - impaired relaxation). Basal Inferior, Mid Inferior gonsales are mildly hypokinetic. Normal wall motion in all other gonsales. RV: The right ventricle size is normal. The right ventricular function is normal. IVS: No evidence of ventricular septal defect. Asymmetric hypertrophy of the left ventricular basal septum consistent with sigmoid septum(normal variant) is noted. LA: Left atrial size is normal. RA: The right atrial size is normal. IAS: Atrial septum appears intact. KAYLA: No evidence of pericardial effusion. AO: Aorta is normal. SVn: Inferior vena cava is normal. Inferior vena cava shows >50% collapse with respiration consistent with normal right atrial pressure. AV: The aortic valve is trileaflet. No evidence of aortic valve stenosis. No evidence of aortic valve regurgitation. MV: No evidence of significant mitral regurgitation. No evidence of mitral stenosis. Mildly calcified posterior mitral annulus. PV: No evidence of pulmonic valve stenosis. No evidence of pulmonic regurgitation. TV: Structurally normal tricuspid valve. A trace of tricuspid regurgitation. No evidence of tricuspid valve stenosis. ++++++++++++++++++++++++++++++++++++ MEASUREMENTS: ++++++++++++++++++++++++++++++++++++ DOPPLER LVOT LVOTpkPG 5 mmHg LVOTmnPG 2 mmHg LVOTpkVel 108 cm/s (70-110) LVOT SV 72 ml LVOT TVI 25.5 cm Right Atrium RA Press 3 mmHg Ervin's Disk 20 Pulmonary Veins PVnpkVeld 52.5 cm/s PVnVs/Vd 1.5 PVnpkVels 78.1 cm/s AV Forward Flow AV TVI 29.2 cm AV pkPG 6 mmHg AV pkVel 125 cm/s (100-170) Area (TVI) 2.48 cm2 (3-5)* AV mnPG 3 mmHg Area (Arvin) 2.45 cm2 (3-5)* MV Forward Flow MV DeTm 190 msec MV pkE 92.9 cm/s (60-130) MV E/A 1.1 MV pkA 84.1 cm/s PV Forward Flow PV pkVel 73.1 cm/s (60-90) PV AC 164 msec PV pkPG 2 mmHg Lat E' Lat e 9.03 cm/s Lat E/E' Lat E/e 10.3 Med E' Med e 7.72 cm/s Med E/E' Med E/e 12 Aortic Valve Aortic Valve Ar 1.42 Aortic Valve Ve 0.86 PV Antegrade Flow Acceleration Sl 403 cm/s2 Right Ventricle Right Ventricle 11.9 cm/s 2D Left Ventricle LVIDd 4.2 cm (3.6-5.2) LV ESV 31.9 ml LVIDs 2.6 cm (2.3-3.9) LV ESV 25.8 ml LngAxd 7.72 cm LVESV BP 28.7 ml LngAxd 7.14 cm LV EF 68 % LV EDV 99.8 ml LV EF 68.8 % LV EDV 82.7 ml LV EF BP 69.6 % LVEDV BP 94.4 ml LV SV 67.8 ml LngAxs 5.63 cm LV SV 56.9 ml LngAxs 5.59 cm LV SV BP 65.7 ml LVPW LVPWd 0.9 cm Ventricular Septum IVSd 0.9 cm Left Atrium LA VOLBP 35.4 ml Aorta Ao Rtd 3.2 cm Ao Asc 3.1 cm (2.1-3.4) LVOT LVOT 1.9 cm LVOTArea 2.84 cm2 Ratios IVS Inferior vena cava IVC Diam 15 mm LA Biplane LAVol I BP 20.2 ml/m2 RA Single Plane Right Atrium MO 14.8 mm Right Atrium Sy 28.4 ml Right Atrium Sy 42.5 mm Right Atrium Sy 16.2 ml/m2 Right Atrium Sy 12.2 cm2 Right Ventricle Right Ventricle 32 mm Right Ventricle 25 mm Major Acampo 59 mm MMODE TA Tricuspid Annul 21.7 mm ++++++++++++++++++++++++++++++++++++ WALL MOTION: ++++++++++++++++++++++++++++++++++++ RESTING WALL MOTION: Basal Inferior, Mid Inferior gonsales are mildly hypokinetic. Normal wall motion in all other gonsales. Wall Index = 1.1 <Electronic Signature> 03/19/2024 12:22 PM Brooklyn Mills M.D. Tiffany Olmos PA-C ECHO Final Resul t * PARTIAL THROMBOPLASTIN TIME,PTT (03/19/2024 10:34 AM PHARMACOEPIDEMIOLOGIST) PTT 29.9 25.1 - 36.5 SEC 03/19/2024 11:29 AM PHARMACOEPIDEMIOLOGIST [facility] 03/19/2024 10:3 4 AM PHARMACOEPIDEMIOLOGIST Carl Bradley MD LABORATORY Final Result Performing Organization Address [facility] Co de Phone Number [facility] [address] [place] [address], * PROTIME/INR, VENOUS (03/19/2024 10:34 AM PHARMACOEPIDEMIOLOGIST) PROTIME 11.1 10.2 - 12.9 SEC 03/19/2024 11:29 AM PHARMACOEPIDEMIOLOGIST [facility] INR 1.0 03/19/2024 11:29 AM PHARMACOEPIDEMIOLOGIST [facility] Comment: Recommended INR Therapeutic Goals: ??2.0-3.0 Routine Therapy ??2.5-3.5 Mechanical Prosthetic Valves (High Risk) 03/19/2024 10:3 4 AM PHARMACOEPIDEMIOLOGIST Carl Bradley MD LABORATORY Final Result Performing Organization Address [facility] Co de Phone Number [facility] [address] [place] [address], * (ABNORMAL) TROPONIN, QUANT (03/19/2024 10:34 AM PHARMACOEPIDEMIOLOGIST) Only the most recent of2 resultswithin the time period is included. TROPONIN I HIGH SENSITIVITY 1,331(HH) <54 ng/L 03/19/2024 11:24 AM PHARMACOEPIDEMIOLOGIST [facility] Comment: NOT CALLED PER CRITICAL VALUE POLICY HIGH DOSES OF BIOTIN, TROPONIN-SPECIFIC AUTOANTIBODIES, AND ANTIBODY THERAPY CONTAINING HAMA MAY INTERFERE WITH THIS TEST RESULT. CORRELATION TO CLINICAL HISTORY AND PRESENTATION RECOMMENDED. 03/19/2024 10:3 4 AM PHARMACOEPIDEMIOLOGIST Efrain ZAFAR LABORATORY Final Resul t [facility] [address] [place] [address], * (ABNORMAL) COMPREHENSIVE METABOLIC PANEL (03/19/2024 9:21 AM PHARMACOEPIDEMIOLOGIST) GLUCOSE 97 70 - 99 MG/DL 03/19/2024 9:58 AM [facility] BUN 16 7 - 18 MG/DL 03/19/2024 9:58 AM [facility] CREATININE S/P/B 0.90 0.55 - 1.02 MG/DL 03/19/2024 9:58 AM [facility] SODIUM S/P/B 138 136 - 145 MMOL/L 03/19/2024 9:58 AM [facility] POTASSIUM S/P/B 4.3 3.5 - 5.1 MMOL/L 03/19/2024 9:58 AM [facility] CHLORIDE S/P/B 107 97 - 115 MMOL/L 03/19/2024 9:58 AM [facility] CO2 26.7 21 - 32 MMOL/L 03/19/2024 9:58 AM [facility] CALCIUM S/P/B 9.7 8.5 - 10.1 MG/DL 03/19/2024 9:58 AM [facility] BILIRUBIN TOTAL S/P/B 0.8 0.2 - 1.2 MG/DL 03/19/2024 9:58 AM [facility] Comment: THIS ASSAY IS NOT RECOMMENDED FOR PATIENTS UNDERGOING TREATMENT WITH ELTROMBOPAG DUE TO THE POTENTIAL FOR FALSELY ELEVATED RESULTS. TOTAL PROTEIN S/P/B 8.0 6.4 - 8.2 G/DL 03/19/2024 9:58 AM [facility] ALBUMIN S/P/B 3.6 3.4 - 5.0 G/DL 03/19/2024 9:58 AM [facility] AST 34 15 - 37 U/L 03/19/2024 9:58 AM [facility] ALT 32 14 - 55 U/L 03/19/2024 9:58 AM [facility] ALKALINE PHOSPHATASE S/P/B 90 50 - 136 U/L 03/19/2024 9:58 AM [facility] ANION GAP 4.3 2 - 10 MMOL/L 03/19/2024 9:58 AM [facility] BUN CREATININE RATIO 17.7 6 - 26 03/19/2024 9:58 AM [facility] A/G RATIO 0.8(L) 1.0 - 2.0 RATIO 03/19/2024 9:58 AM [facility] GFR ESTIMATE 71(L) >90 ML/MIN/1.7 3 M2 03/19/2024 9:58 AM [facility] Comment: NOTE: eGFR is not calculated for patients <18 years of age or gender unknown. This is an estimated GFR calculation using the new CKD EPI creatinine equation without race and so does not require a correction factor for race. This estimated GFR should not be used for calculating drug doses. 03/19/2024 9:21 AM PHARMACOEPIDEMIOLOGIST Efrain ZAFAR LABORATORY Final Resul t [facility] [address] [place] [address], * D-DIMER, QUANTITATIVE (03/19/2024 9:21 AM PHARMACOEPIDEMIOLOGIST) D-DIMER 483 0 - 500 ng{FEU}/mL 03/19/2024 9:54 AM PHARMACOEPIDEMIOLOGIST [facility] Comment: D-Dimer values less than or equal to 500 ng/mL FEU have a negative predictive value of >95% for exclusion of deep vein thrombosis and pulmonary embolism. In patients over 50 (who tend to have higher normal baseline D-Dimer values), recent studies suggest age-adjusted D-Dimer cutoff values (calculated as: age [years] x 10 ng/mL) result in equivalent outcomes and no additional false negative findings. 03/19/2024 9:21 AM PHARMACOEPIDEMIOLOGIST Efrain ZAFAR LABORATORY Final Resul t Performing Organization Address City/[facility]/ZIP Co de Phone Number [facility] [address] [place] [address], [place] [phone] * LIPASE (03/19/2024 9:21 AM PHARMACOEPIDEMIOLOGIST) LIPASE 41 13 - 75 UNITS/L 03/19/2024 9:58 AM PHARMACOEPIDEMIOLOGIST [facility] 03/19/2024 9:21 AM PHARMACOEPIDEMIOLOGIST Efrani ZAFAR LABORATORY Final Resul t Performing Organization Address [facility] Co de Phone Number [facility] [address] [place] [address], [place] [phone] * XR CHEST PA+LAT (03/19/2024 9:03 AM PHARMACOEPIDEMIOLOGIST) Anatomical Region Laterality Modality Chest Radiographic Kanwal ging 03/19/2024 9:11 AM PHARMACOEPIDEMIOLOGIST Impressions 03/19/2024 9:13 AM PHARMACOEPIDEMIOLOGIST IMPRESSION: No acute pulmonary infiltrate or consolidation. No acute pulmonary vascular congestion. Ordered By: EFRAIN EVERETT Interpreted By: Jayme Wray, 03/19/2024 9:11 AM Narrative 03/19/2024 9:13 AM PHARMACOEPIDEMIOLOGIST [address] [address] IMAGING STUDIES: ??XR CHEST PA+LAT ?DATE: ??03/19/2024 8:49 AM HISTORY: ??chest pain ? 64-year-old female. Burning chest pain that began last week and radiates to both arms. Pain worse with exertion and resolves with rest. Mild dizziness and shortness of breath. COMPARISON: ??None. DISCUSSION: Upright PA and lateral views. Heart size within normal limits. No acute pulmonary vascular congestion. No acute pulmonary infiltrate, pulmonary consolidation, pleural effusion, or pneumothorax. Mild degenerative changes spine and shoulders. Procedure Note Jayme Wray MD - 03/19/[address] [address] IMAGING STUDIES: XR CHEST PA+LATDATE: 03/19/2024 8:49 AM HISTORY: chest pain 64-year-old female. Burning chest pain that beganlast week and radiates to both arms. Pain worse with exertion and resolveswith rest. Mild dizziness and shortness of breath. COMPARISON: None. DISCUSSION: Upright PA and lateral views. Heart size within normal limits. No acute pulmonary vascular congestion. No acute pulmonary infiltrate, pulmonary consolidation, pleural effusion,or pneumothorax. Mild degenerative changes spine and shoulders. IMPRESSION: No acute pulmonary infiltrate or consolidation. No acute pulmonaryvascular congestion. Ordered By: EFRAIN EVERETT Interpreted By: Jayme Wray, 03/19/2024 9:11 AM us Efrain ZAFAR [facility] Final Resul t * MG SCREENING W SEBASTIEN HEBER DIGI (02/15/2024 12:30 PM CDT) Anatomical Region Laterality Modality Breast Bilateral Mammography 02/15/2024 3:53 PM CDT Impressions 02/15/2024 3:58 PM CDT ===== IMPRESSION: ===== 1. ??Stable mammographic appearance with no new findings to suggest malignancy in either breast. Assessment: ACR BI-RADS 2 - BENIGN FINDING(S) Recommendation: 1:Routine Screening Bilateral Comments: Ordered By: CARLA GRIMES Interpreted By: Matthew Cortes, 02/15/2024 3:53 PM Narrative 02/15/2024 3:58 PM CDT [facility] [address] [address] EXAMINATION: Digital bilateral screening mammogram with 3-D tomosynthesis EXAM DATE/TIME: 02/15/2024 11:27 AM REASON FOR EXAM: ??Screening ?? COMPARISON: 11/19/2020.. 11/24/2021 Technique: Digital screening mammography of both breasts was performed in addition to 3-D Tomosynthesis technique. This study was read with the assistance of a computer-aided detection system. Tissue density: There are scattered areas of fibroglandular density. Findings: There is no new focal asymmetry, dominant mass lesion, area of skin thickening, or cluster of suspicious appearing calcifications in either breast to suggest malignancy. Carla Grimes MD MAMMO Final Result * BONE DENSITY/DEXA (08/14/2021 2:42 PM CDT) Anatomical Region Laterality Modality Bone Bone Density 08/14/2021 2:45 PM CDT Narrative 08/14/2021 2:46 PM CDT IMAGING STUDIES: BONE DENSITY/DEXA ??DATE: 08/14/2021 2:33 PM CLINICAL HISTORY: 61-year-old female with menopause at age 38. On calcium therapy.. FINDINGS: LUMBAR SPINE L2-L4: BMD: 1.103 g/sq cm T-SCORE: ??0.2 WHO CLASSIFICATION: Normal young adult range FRACTURE RISK: ??Negligible LEFT FEMORAL NECK: BMD: ??0.812 T-SCORE: -0.3 WHO CLASSIFICATION: Normal young adult range FRACTURE RISK: Very low Recommendation. Continuation of calcium replacement therapy with repeat imaging in 2 years Ordered By: KIMBERLY VEGA Interpreted By: Matthew Cortes, 08/14/2021 2:45 PM Procedure Note Shaheed Cortes MD - 08/14/2021 IMAGING STUDIES: BONE DENSITY/DEXA DATE: 08/14/2021 2:33 PM CLINICAL HISTORY: 61-year-old female with menopause at age 38.On calcium therapy.. FINDINGS: LUMBAR SPINE L2-L4: BMD: 1.103 g/sq cm T-SCORE: 0.2 WHO CLASSIFICATION: Normal young adult range FRACTURE RISK: Negligible LEFT FEMORAL NECK: BMD: 0.812 T-SCORE: -0.3 WHO CLASSIFICATION: Normal young adult range FRACTURE RISK: Very low Recommendation. Continuation of calcium replacement therapy with repeatimaging in 2 years Ordered By: KIMBERLY VEGA Interpreted By: Matthew Cortes, 08/14/2021 2:45 PM us Kimberly Vega MD DEXA Final Result * COLONOSCOPY/EGD (12/27/2018) us Documents Scanned SCANNING Final Result [facility] [address] [address] from Last 3 Months or Most Recently Relevant to Health Maintenance Insurance [employer] Advance Directives * Full Code (Latest Code Status on File) Date Activated Date Inactivated Comments 03/19/2024 5:07 PM 03/20/2024 2:06 PM * Full Code Date Activated Date Inactivated Comments 03/19/2024 11:36 AM 03/19/2024 5:07 PM * Full Code Date Activated Date Inactivated Comments 10/19/2021 6:22 AM 10/20/2021 9:15 PM Care Teams Biometry Teacher Relationship Specialty [place] [address] [facility] [address] [place] [address] PCP - General FAMILY PRACTICE 12/29/22
--- OUTSIDE RECORDS SUMMARY | 2024-06-13 01:34 | XMS_ITS | Encounter Summary ---
Author Organization [facility] Address [address] [place] [address]. [place] [address] [place] [address] Care Team Providers Care Family Consumer Science Fcs Teacher Name Role Phone Ariana Rubio MD Primary Care Provider [phone] Antonella Bull NP Primary Care Provider [phone] Carla Bunch MD Primary Care Provider [phone] Alejandra Monahan RN Unavailable [phone] Encounter Details Date Type Department Care Team (Late st Contact Info) Description 06/26/2015 Abstract [facility] CONVERSION [address] [place] [address] , Generic Conversion, Social History Tobacco Use Types Packs/Day Years Used Date Smoking Tobacco: Never Assessed Comments Unknown Sex and Gender Information Value Date Recorded Sex Assigned at Not on file Legal Sex Female 8:27 PM CDT Gender Identity Not on file Sexual Orientation Not on file documented as of this encounter Plan of Treatment Upcoming Encounters Date Type Department Care Team (Late st Contact Info) Description 06/29/2024 12:00 PM RECEPTION INTERVIEWER Office Visit [facility] [address] [place] [address] Tiffany Olmos PA-C 3 [facility], [address] [place] [address] 07/11/2024 11:12 AM RECEPTION INTERVIEWER Hospital Encounter [facility] [address] [place] [address] Rosalio Ordaz MD [address] [address] 07/11/2024 11:12 AM RECEPTION INTERVIEWER - 07/11/2024 11:39 AM RECEPTION INTERVIEWER Surgery [facility] [address] [place] [address] Rosalio Ordaz MD [address] [id number] EGD 11/07/2024 10:00 AM CDT Office Visit [facility] Family & Internal Medicine [facility] [address] [place] [address] [place] [address] [facility]. [address] [place], [place] [phone] Scheduled Procedures Name Priority Associated Diagnoses Date/Ti me EGD Epigastric pain Nausea and vomiting, unspecified vomiting type Biliary colic 07/11/2024 11:12 AM RECEPTION INTERVIEWER documented as of this encounter Visit Diagnoses Not on filedocumented in this encounter Additional Health Concerns Infection Onset Date Last Indicated Resolved Time COVID-19 Rule Out 05/05/2023 05/05/2023 05/05/2023 8:51 AM RECEPTION INTERVIEWER COVID-19 Rule Out 05/05/2023 05/05/2023 05/05/2023 1:41 PM RECEPTION INTERVIEWER documented as of this encounter Care Teams Family Consumer Science Fcs Teacher Relationship Specialty Start Date End Date Ariana Rubio MD PCP - General INTERNAL MEDICINE 05/24/18 08/19/22 [place] [address] [address], [address] [place] [address] PCP - General Nurse Practitioner Family 08/20/22 12/26/22 [place] [address] [address] [place] [address] PCP - General FAMILY PRACTICE 12/29/22 Alejandra Monahan, RN [address] [place] [address] Machine Whitener (Ambulatory) REGISTERED NURSE 03/20/24 03/20/24 documented as of this encounter
--- OUTSIDE RECORDS SUMMARY | 2024-06-13 01:34 | XMS_ITS | Encounter Summary ---
Author Organization [facility] Address [address] [place] [address]. [place] [address] [place] [address] Care Team Providers Care Pack Master Name Role Phone Carla Bunch MD Primary Care Provider [phone] Alejandra Monahan RN Unavailable [phone] Encounter Details Date Type Department Care Team (Late st Contact Info) Description 06/30/2023 [employer] Message Enc [facility] [address] [place] [address] [place] [address] [place] [address]. [address] [place] [address] more blood pressures Social History Tobacco Use Types Packs/Day Years [...] of Binge Drinking Not on file 12/2020 PHQ-2 Answer Date Recorded Patient Health Questionnaire-2 [...] documented in this encounter Progress Notes * Ashley Johns MA - 07/05/2023 7:09 AM CST FYI RAL FREIGHT AGENT documented in this encounter Plan of Treatment Upcoming Encounters Date Type Department Care Team (Late st Contact Info) Description 06/29/2024 12:00 PM GENERAL FREIGHT AGENT Office Visit [facility], [address] [place], [place] [id number] Tiffany Olmos PA-C 3 [facility], [address] [place], [place] [phone] 07/11/2024 11:12 AM GENERAL FREIGHT AGENT Hospital Encounter [facility] [address] [place] [address] Rosalio Ordaz MD [address] [address] 07/11/2024 11:12 AM GENERAL FREIGHT AGENT - 07/11/2024 11:39 AM GENERAL FREIGHT AGENT Surgery [facility] [address] [place] [address] Rosalio Ordaz MD [address] [address] EGD 11/07/2024 10:00 AM CDT Office Visit [facility] Medical Group Family & Internal Medicine - [address] [phone] [place] [address] [facility]. [address] [place] [address] Scheduled Procedures Name Priority Associated Diagnoses Date/Ti me EGD Epigastric pain Nausea and vomiting, unspecified vomiting type Biliary colic 07/11/2024 11:12 AM GENERAL FREIGHT AGENT documented as of this encounter Visit Diagnoses Not on filedocumented in this encounter Additional Health Concerns Assessment Noted Time PHQ-9 Depression Total Score: 0 08/06/19 22 10:18 AM CDT documented as of this encounter Care Teams Pack Master Relationship Specialty Start Date End Date Carla Bunch MD [address] [place] [address]. [address] [place] [id number] PCP - General FAMILY PRACTICE 12/29/22 Alejandra Monahan, RN [address] [place] [address] Racking Technician (Ambulatory) REGISTERED NURSE 03/20/24 documented as of this encounter
--- OUTSIDE RECORDS SUMMARY | 2024-06-13 01:34 | XMS_ITS | Encounter Summary ---
Author Organization [facility] Address [address] [place] [address]. [place] [address] [place] [address] Care Team Providers Care Air Hammer Stripper Name Role Phone Ariana Rubio MD Primary Care Provider [phone] Antonella Bull NP Primary Care Provider [phone] Carla Bunch MD Primary Care Provider [phone] Alejandra Monahan RN Unavailable [phone] Encounter Details Date Type Department Care Team (Late st Contact Info) Description 04/06/2022 [employer] Message Enc [facility] Medical [facility] Family & Internal Medicine [address] [address] Lydia [facility] Provider Due for routine follow up appt Social History Tobacco Use Types Packs/Day Years [...] on file 12/2020 PHQ-2 Answer Date Recorded PHQ-2 Score - If the patient scores above 3, please move on to questions 3-9 0 08/05/2021 Comments No Sex and Gender Information Value [...] Author Status No 10/19/2021 6:06 AM CDT Shanenn Kingsley RN Active * Do you have [...] Kingsley RN Active documented in this encounter Plan of Treatment Upcoming Encounters Date Type Department Care Team (Late st Contact Info) Description 06/29/2024 12:00 PM STABLE CLEANER Office Visit [facility], [address] [place] [address] Tiffany Olmos PA-C 3 [facility], [address] [place] [address] 07/11/2024 11:12 AM STABLE CLEANER Hospital Encounter [facility] [address] [place], [place] [phone] Rosalio Ordaz MD [address] [address] 07/11/2024 11:12 AM STABLE CLEANER - 07/11/2024 11:39 AM STABLE CLEANER Surgery [facility] [address] [place] [address] Rosalio Ordaz MD [address] [address] EGD 11/07/2024 10:00 AM CDT Office Visit [facility] Medical [facility] Family & Internal Medicine [facility] [address] [place] [address] [place] [address] [facility]. [address] [place] [address] Scheduled Procedures Name Priority Associated Diagnoses Date/Ti me EGD Epigastric pain Nausea and vomiting, unspecified vomiting type Biliary colic 07/11/2024 11:12 AM STABLE CLEANER documented as of this encounter Visit Diagnoses Not on filedocumented in this encounter Additional Health Concerns Infection Onset Date Last Indicated Resolved Time COVID-19 Rule Out 05/05/2023 05/05/2023 05/05/2023 8:51 AM STABLE CLEANER COVID-19 Rule Out 05/05/2023 05/05/2023 05/05/2023 1:41 PM STABLE CLEANER Assessment Noted Time PHQ-9 Depression Total Score: 0 08/06/19 10:18 AM CDT documented as of this encounter Care Teams Air Hammer Stripper Relationship Specialty Start Date End Date Ariana Rubio MD PCP - General INTERNAL MEDICINE 05/24/18 08/19/22 [place] [address] [facility], [address] [place] [address] PCP - General Nurse Practitioner Family 08/20/22 12/26/22 [place] [address] [address] [place] [address] PCP - General FAMILY PRACTICE 12/29/22 Alejandra Monahan RN [address] [place] [address] Dopeman (Ambulatory) REGISTERED NURSE 03/20/24 03/20/24 documented as of this encounter
--- OUTSIDE RECORDS SUMMARY | 2024-06-13 01:34 | XMS_ITS | Encounter Summary ---
Author Organization [facility] Address [address] [place] [address]. [place] [address] [place] [address] Care Team Providers Care Plastics Fabrication Supervisor Name Role Phone Ariana Rubio MD Primary Care Provider [phone] Antonella Bull NP Primary Care Provider Carla Bunch MD Primary Care Provider [phone] Alejandra Monahan RN Unavailable [phone] Encounter Details Date Type Department Care Team (Late st Contact Info) Description 10/22/2021 [employer] Message Enc [facility] [address] [place] [address] Lydia, [facility] Provider [facility] Social History Tobacco Use Types Packs/Day Years [...] on file Sexual Orientation Not on file COVID-19 Exposure Response Date Recorded In the last 10 days, have yo u been in contact with someone who was confirmed or suspected to have Coronavirus/COVID-19? No / Unsure 10/19/2021 1:37 AM CDT documented as of this encounter Functional Status [...] st Contact Info) Description 06/29/2024 12:00 PM PARACHUTE ACCESSORIES ATTACHER Office Visit [facility] THREE [facility], [address] [place], [place] [phone] Tiffany Olmos PA-C 3 [facility], [address] [place] [address] 07/11/2024 11:12 AM PARACHUTE ACCESSORIES ATTACHER Hospital Encounter [facility] [address] [place] [address] Rosalio Ordaz MD [address] [address] 07/11/2024 11:12 AM PARACHUTE ACCESSORIES ATTACHER - 07/11/2024 11:39 AM PARACHUTE ACCESSORIES ATTACHER Surgery [facility] [address] [place] [address] Rosalio Ordaz MD [address] [address] EGD 11/07/2024 10:00 AM CDT Office Visit [facility] Family & Internal Medicine [facility] [address] [place] [phone] [place]unch [place] [address] [place] [address]. [address] [place] [phone] Scheduled Procedures Name Priority Associated Diagnoses Date/Ti me EGD Epigastric pain Nausea and vomiting, unspecified vomiting type Biliary colic 07/11/2024 11:12 AM PARACHUTE ACCESSORIES ATTACHER documented as of this encounter Visit Diagnoses Not on filedocumented in this encounter Additional Health Concerns Infection Onset Date Last Indicated Resolved Time COVID-19 Rule Out 05/05/2023 05/05/2023 05/05/2023 8:51 AM PARACHUTE ACCESSORIES ATTACHER COVID-19 Rule Out 05/05/2023 05/05/2023 05/05/2023 1:41 PM PARACHUTE ACCESSORIES ATTACHER Assessment Noted Time PHQ-9 Depression Total Score: 0 08/06/19 10:18 AM CDT documented as of this encounter Care Teams Plastics Fabrication Supervisor Relationship Specialty Start Date End Date Ariana Rubio MD PCP - General INTERNAL MEDICINE 05/24/18 08/19/22 [place] [address] [address], [address] [place] [address] PCP - General Nurse Practitioner Family 08/20/22 12/26/22 [place] [address] [address] [place] [address] PCP - General FAMILY PRACTICE 12/29/22 Alejandra Monahan, RN [address] [place] [address] Teaching Assistant (Ambulatory) REGISTERED NURSE 03/20/24 03/20/24 documented as of this encounter
--- OUTSIDE RECORDS SUMMARY | 2024-06-13 01:35 | XMS_ITS | Encounter Summary ---
Author Organization [facility] Address [address] [place] [address]. [place] [address] [place] [address] Care Team Providers Care Lift Mechanic Name Role Phone Carla Bunch MD Primary Care Provider [phone] Encounter Details Date Type Department Care Team (Late st Contact Info) Description 04/06/2024 [employer] Message Enc [facility] Medical Group Multispecialty Care - [facility] 3 [facility], [address] [place] [address] [facility] Card[facility] Clear[facility] Social History Tobacco Use Types Packs/Day Years Used Date Smoking Tobacco: Never Passive Smoke Exposure: Never Smokeless Tobacco: Never Alcohol Use Standard Drinks/Week Comments Yes 0 (1 standard drink = 0.6 oz pur e alcohol) 1 drink per week [facility] Utilities Answer Date Recorded In the past 12 months has [employer], gas, oil, or water [employer] ([employer]) threatened to shut off services in your [...] Date Recorded Patient Health Questionnaire-2 Score 0 01/27/2024 Hunger Vital Sign Answer Date Recorded Within [...] any time in the past 12 m [facility], were you homeless or living in a senior care (including now)? No 03/19/2024 Comments No Sex [...] st Contact Info) Description 06/29/2024 12:00 PM SENIOR CHEMIST Office Visit [facility], [address] [place] [address] Tiffany Olmos PA-C 3 [facility], [address] [place] [address] 07/11/2024 11:12 AM SENIOR CHEMIST Hospital Encounter [facility] [address] [place] [address] Rosalio Ordaz MD 3 [facility] [address] [place] [address] 07/11/2024 11:12 AM SENIOR CHEMIST - 07/11/2024 11:39 AM SENIOR CHEMIST Surgery [facility] [address] [place] [address] Rosalio Ordaz MD [address] [address] EGD 11/07/2024 10:00 AM CDT Office Visit [facility] Medical Group Family & Internal Medicine - [place] [address] [place] [phone] [place] [address] [facility]. [address] [place] [address] Scheduled Procedures Name Priority Associated Diagnoses Date/Ti me EGD Epigastric pain Nausea and vomiting, unspecified vomiting type Biliary colic 07/11/2024 11:12 AM SENIOR CHEMIST documented as of this encounter Visit Diagnoses Not on filedocumented in this encounter Additional Health Concerns Assessment Noted Time PHQ-9 Depression Total Score: 4 11/07/19 24 8:56 AM CDT documented as of this encounter Care Teams Lift Mechanic Relationship Specialty [place] [address] [facility]. [address] [place] [address] PCP - General FAMILY PRACTICE 12/29/22 documented as of this encounter
--- OUTSIDE RECORDS SUMMARY | 2024-06-13 01:35 | XMS_ITS | Encounter Summary ---
Author Organization [facility] Address [address] [place] [address]. [place] [address] [place] [address] Care Team Providers Care Seafood Clerk Name Role Phone Carla Bunch MD Primary Care Provider [phone] Encounter Details Date Type Department Care Team (Latest Contact Info) Description 04/01/2024 [employer] Message Enc [facility] Medical [facility] [address] [address] Rosalio Ordaz MD [address] [place] [address] Blood thinners Social History Tobacco Use Types Packs/Day Years Used Date Smoking Tobacco: Never Passive Smoke Exposure: Never Smokeless Tobacco: Never Alcohol Use Standard Drinks/Week Comments Yes 0 (1 standard drink = 0.6 oz pur e alcohol) 1 drink per week [facility] Utilities Answer Date Recorded In the past 12 months has e electric, gas, oil, or water company threatened to shut off services in your [...] any time in the past 12 m [facility], were you homeless or living in a jail (including now)? No 03/19/2024 Comments No Sex [...] st Contact Info) Description 06/29/2024 12:00 PM VP GLOBAL Office Visit [facility] [address] [place] [address] Tiffany Olmos PA-C 3 [facility], [address] [place] [address] 07/11/2024 11:12 AM VP GLOBAL Hospital Encounter [facility] [address] [place] [address] Rosalio Ordaz MD 3 [facility] [address] [place] [address] 07/11/2024 11:12 AM VP GLOBAL - 07/11/2024 11:39 AM VP GLOBAL Surgery [facility] [address] [place] [address] Rosalio Ordaz MD [address] [address] EGD 11/07/2024 10:00 AM CDT Office Visit [facility] Medical Group Family & Internal Medicine - [place] [address] [place] [phone] [place] [address] [facility]. [address] [place] [address] Scheduled Procedures Name Priority Associated Diagnoses Date/Ti me EGD Epigastric pain Nausea and vomiting, unspecified vomiting type Biliary colic 07/11/2024 11:12 AM VP G[employer]BAL documented as of this encounter Visit Diagnoses Not on filedocumented in this encounter Additional Health Concerns Assessment Noted Time PHQ-9 Depression Total Score: 4 11/07/19 24 8:56 AM CDT documented as of this encounter Care Teams Seafood Clerk Relationship Specialty [place] [address] [facility]. [address] [place] [address] PCP - General FAMILY PRACTICE 12/29/22 documented as of this encounter
--- OUTSIDE RECORDS SUMMARY | 2024-06-13 01:35 | XMS_ITS | Encounter Summary ---
Author Organization [facility] Address [address] [place] [address]. [place] [address] [place] [address] Care Team Providers Care Order Checker Packer Processer Name Role Phone Ariana Rubio MD Primary Care Provider [phone] Antonella Bull NP Primary Care Provider [phone] Carla Bunch MD Primary Care Provider [phone] Alejandra Monahan RN Unavailable [phone] Encounter Details Date Type Department Care Team (Late st Contact Info) Description 05/06/2021 XINGt Message Enc [facility] Family & Internal Medicine [facility] [address] [place] [address] Ariana Rubio MD [address] [place] [address] Aorta screen Social History Tobacco Use Types Packs/Day Years [...] please move on to questions 3-9 0 07/21/2020 Comments No Sex and Gender Information Value Date Recorded Sex Assigned at Not on file Legal Sex Female 8:27 PM CDT Gender Identity Not on file Sexual Orientation Not on file COVID-19 Exposure Response Date Recorded In the last month, have you been in contact with someone who was confirmed or suspected to have Coronavirus / COVID-19? No / Unsure 05/04/2021 7:33 PM SYSTEMS TESTING LABORATORY TECHNICIAN documented as of this encounter Progress Notes * Mallika Santacruz RN - 05/07/2021 3:45 PM CST Will clarify with provider which test to order as test ordered is a [place] Aorta screening. Will need to clarify when provider returns to clinic EMS TESTING LABORATORY TECHNICIAN * Mallika Santacruz RN - 05/06/2021 9:03 AM CST Printed to discuss with provider EMS TESTING LABORATORY TECHNICIAN documented in this encounter Plan of Treatment Upcoming Encounters Date Type Department Care Team (Late st Contact Info) Description 06/29/2024 12:00 PM SYSTEMS TESTING LABORATORY TECHNICIAN Office Visit [facility], [address] [place] [address] Tiffany Olmos PA-C 3 [facility], [address] [place] [address] 07/11/2024 11:12 AM SYSTEMS TESTING LABORATORY TECHNICIAN Hospital Encounter [facility] [address] [place], [place] [id number] Rosalio Ordaz MD 3 [facility] [address] [place] [address] 07/11/2024 11:12 AM SYSTEMS TESTING LABORATORY TECHNICIAN - 07/11/2024 11:39 AM SYSTEMS TESTING LABORATORY TECHNICIAN Surgery [facility] [address] [place] [address] Rosalio Ordaz MD [address] [place] [address] EGD 11/07/2024 10:00 AM CDT Office Visit [facility] Family & Internal Medicine - [place] [address] [place] [address] [place] [address] [facility]. [address] [place] [address] Scheduled Procedures Name Priority Associated Diagnoses Date/Ti me EGD Epigastric pain Nausea and vomiting, unspecified vomiting type Biliary colic 07/11/2024 11:12 AM SYSTEMS TESTING LABORATORY TECHNICIAN documented as of this encounter Visit Diagnoses Not on filedocumented in this encounter Additional Health Concerns Infection Onset Date Last Indicated Resolved Time COVID-19 Rule Out 05/05/2023 05/05/2023 05/05/2023 8:51 AM SYSTEMS TESTING LABORATORY TECHNICIAN COVID-19 Rule Out 05/05/2023 05/05/2023 05/05/2023 1:41 PM SYSTEMS TESTING LABORATORY TECHNICIAN documented as of this encounter Care Teams Order Checker Packer Processer Relationship Specialty Start Date End Date Ariana Rubio MD PCP - General INTERNAL MEDICINE 05/24/18 08/19/22 [place] [address] [facility], [address] [place] [address] PCP - General Nurse Practitioner Family 08/20/22 12/26/22 [place] [address] [facility] [address]. [address] [place] [address] PCP - General FAMILY PRACTICE 12/29/22 Alejandra Monahan, RN [address] [place] [address] Child Care Associate Teacher (Ambulatory) REGISTERED NURSE 03/20/24 03/20/24 documented as of this encounter
--- OUTSIDE RECORDS SUMMARY | 2024-06-13 01:35 | XMS_ITS | Continuity of Care Document ---
Author Organization [facility] Address [id number] [place] [address] [address] Phone Care Team Providers Care Thread Roller Name Role Phone Isaiah Childers Unavailable Unavailable Procedures Procedure Date Eye Exam & Treatment Feb- Visual Field Examination(s) Ophthalmoscopy, Subsequent Optic Nerve Topography Post-op Follow-up Visit Eye Exam Established Pt Ophthalmoscopy, Subsequent Ophthalmoscopy, Subsequent Eye Exam Established Pt Eye Exam Established Pt Ophthalmoscopy, Subsequent Eye Exam Established Pt Ophthalmoscopy, Subsequent Eye Exam & Treatment Ophthalmoscopy, Subsequent Optic Nerve Topography Eye Exam Established Pt Ophthalmoscopy, Subsequent Eye Exam Established Pt Office/outpatient Visit, Est Eye Exam Established Pt Eye Exam Established Pt Eye Exam Established Pt Eye Exam Established Pt Ophthalmoscopy, Subsequent Ophthalmoscopy, Subsequent Post-op Follow-up Visit Ophthalmoscopy, Subsequent Eye Exam Established Pt Ophthalmoscopy, Subsequent Eye Exam, New Patient Treatment Of Retina Ophthalmoscopy Advance Directives Directive Yes / No Effective Date File Name No Information Encounters Encounter Description Practice Location Reason(s) For Visit Diagnoses Date Provider Providers Copied on Encounter [facility], [address], [place], [place], [id number], [place] tel:[phone] [facility] No Information 0 Liseth Colon. [address] [place], [address], [place]. tel:[phone] Referring Provider: Isaiah Walker, [address] [place], [address]. tel:[phone] [facility], [address], [place], [place], [id number], [place] tel:[phone] [facility] No Information 0 Liseth Colon. [address] [place], [address], [place]. [phone] Referring Provider: Isaiah Walker, [address] [place], [address]. tel:[phone] [facility], [address], [place], [place], [id number], [place] tel:[phone] [facility] No Information 0 Liseth Colon. [address] [place], [address], [place]. tel:[phone] Referring Provider: Isaiah Walker, [address] [place], [address]. tel:[phone] [facility], [address], [place], [place], [id number], [place] tel:[phone] [facility] No Information 0 Liseth Colon. [address] [place], [address], [place]. tel:[phone] Referring Provider: Isaiah Walker, [address] [place], [address]. tel:[phone] [facility], [address], [place], [place], [address], [place] tel:[phone] [facility] No Information 8-201 0 Liseth Colon. [address] [place], [address], [place]. tel:[phone] Referring Provider: Isaiah Walker, [address] [place], [address]. tel:[phone] [facility], [address], [place], [place], [address], [place] tel:[phone] [facility] [place] No Information 4-201 0 Liseth Colon. [address] [place], [address], [place]. tel:[phone] [facility], [address], [place], [place], [address], [place] tel:[phone] [facility] No Information Dec-1 4-200 9 Liseth Colon. [address] [place], [address], [place]. tel:[phone] Referring Provider: Isaiah Walker, [address] [place], [address]. tel:[phone] [facility], [address], [place], [place], [id number], [place] tel:[phone] [facility] No Information Dec-2 9-200 8 Liseth Colon. [address] [place], [address], [place]. tel:[phone] [facility], [address], [place], [place], [address], [place] tel:[phone] [facility] No Information Dec-0 5-200 8 Hayes OD Victor Manuel. [address], [address], [place], [address], [place]. [phone] Office/outpat ient Visit, Est [facility], [address], [place], [place], [address], [place] tel:[phone] [facility] No Information Feb-0 7-200 8 Childers Isaiah. [address] [place], [address], [place]. tel:[phone] [facility], [address], [place], [place], [address], [place] tel:[phone] [facility] No Information Alexander-1 0-200 8 Childers Isaiah. [address] [place], [address], [place]. tel:[phone] [facility], [address], [place], [place], [address], [place] tel:[phone] [facility] No Information Dec-1 3-200 7 Childers Isaiah. [address] [place], [address], [place]. tel:[phone] [facility], [address], [place], [place], [address], [place] tel:[phone] [facility] No Information Nov-2 9-200 7 Childers Isaiah. [address] [place], [address], [place]. tel:[phone] [facility], [address], [place], [place], [address], [place] tel:[phone] [facility] No Information Oct-1 5-200 7 Childers Isaiah. [address] [place], [address], [place]. tel:[phone] [facility], [address], [place], [place], [address], [place] tel:[phone] [facility] No Information Nilay-0 9-200 7 Childers Isaiah. [address] [place], [address], [place]. tel:[phone] [facility], [address], [place], [place], [address], tel:[phone] [facility] No Information 1200 7 Liseth Colon. [address] [place], [address], [place]. tel:[phone] [facility], [address], [place], [place], [address], [place] tel:[phone] [facility] No Information 0 7-200 7 Liseth Colon. [address] [place], [address], [place]. tel:[phone] Referring Provider: Bernard Wiggins, [address] [place] [address], [address]. tel:[phone] Family History Family Member Type Diagnosis Age At Onset No Information Payers Payer name Insurance type Covered alliance party ID Vilma sarabiaese(s) [facility] [id number] Social History Type Description Quantity Date Captured Comments Sex Female Smoking Status No Information Chief Complaint And Reason For Visit No Information Reason For Referral Reason For Referral No Information History Of Present Illness Encounter Date Complaint History Of Prese nt Illness No Information Functional Status Date Functional Assessmen t No Information Instructions Date Instruction Additional Infor mation No Information Assessments Type Assessment Date No Information Patient Care Teams Name Effective Dates (start - stop) Status Members No Information
--- OUTSIDE RECORDS SUMMARY | 2024-06-13 01:35 | XMS_ITS | Data Portability ---
Author Organization [facility] [place] Address [address] [place] [address] Care Team Providers Care Business Continuity Global Director Name Role Phone GRIMES BRITTNEY Primary Care Provider Assessment No assessment recorded. Plan of Treatment Reminders Order Date Submit Date Provider Last Modified By Organization Details Last Modified Time Details Appointments SURG Suction D&C 2024 08:30A Chapito GABRIEL MD Not available Not available Not available SURG POST OP 2024 01:00P M Austyn GABRIEL MD Not available Not available Not available U/S PLANT OPERATOR HELPER COMPLET E 2024 01:00P M ULTRASOUND Not available Not available Not available U/S F/U 2024 01:00P Chapito GABRIEL MD Not available Not available Not available Lab None recorde d. Referral None recorde d. Procedures None recorde d. Surgeries dilatio n and curetta ge with hystero scopy (SURG) [address], [address] [address], [place], [address], 05/30/2024 11:27:33 Imaging None recorde d. Medication Orders None recorde d. Patient TargetsNo targets recorded. Patient InstructionsNo instructions recorded. Reason for Referral None Reported. Procedures Surgical History Date Name Laterality Status Provider Name and Address Organization Details Recorded Time 4 placement of stent in cardiac conduit completed Payal Stern [facility] 05/28/2024 16:24:55 Date of Last Mammogram completed [facility] 05/28/2024 16:14:29 1 Date of Last Pap Smear completed [facility] 05/28/2024 16:16:32 9 completed [facility] 05/28/2024 16:14:29 Dilation and Curettage completed [facility] 05/28/2024 16:14:53 tonsilectomy/ad enoids completed [facility] 05/28/2024 16:14:53 Colonoscopy completed [facility] 05/28/2024 16:23:45 Imaging Results None recorded. Procedure Notes None recorded. Medical Equipment None Reported. Allergies No known drug allergies Medications Name Sig Start Date Stop Date Status Note LastModified by Organization Details LastModified Time atorvastati n 40 mg tablet TAKE 1 TABLET (40 MG TOTAL) BY MOUTH NIGHTLY AT BEDTIME. NEW DOSE active Not Available Not Available No t Available clopidogrel 75 mg tablet START IN MAY 2024. LOADING DOSE TAKE (300MG/ 4 TABLETS) THE FIRST DAY AND THEN 1 TABLET DAILY active Not Available Not Available No t Available aspirin 81 mg tablet,noemi yed release TAKE 1 TABLET BY MOUTH EVERY DAY active Not Available Not Available No t Available acetaminoph en 650 mg tablet active Not Available Not Available Not Available estradiol 1 mg tablet TAKE 0.5 TABLETS (0.5 MG TOTAL) BY MOUTH DAILY 05/28 completed Not Available Not Available Not Available rizatriptan 10 mg disintegrat ing tablet PLEASE SEE ATTACHED FOR DETAILED DIRECTION S active Not Available Not Available No t Available lisinopril 10 mg tablet TAKE 1 TABLET BY MOUTH EVERY DAY active Not Available Not Available No t Available lisinopril 30 mg tablet TAKE 1 TABLET BY MOUTH EVERY DAY 05/28 completed Not Available Not Available Not Available docusate sodium 100 mg capsule active Not Available Not Available N ot Available estradiol 0.5 mg tablet active Not Available Not Available Not Available metoprolol succinate ER 25 mg tablet,exte nded release 24 hr TAKE 1 TABLET BY MOUTH EVERY DAY active Not Available Not Available No t Available progesteron e micronized 100 mg capsule TAKE 1 CAPSULE BY MOUTH EVERY DAY active Not Available Not Available No t Available escitalopra m 10 mg tablet TAKE 1 TABLET BY MOUTH EVERY DAY active Not Available Not Available No t Available metoprolol tartrate 25 mg tablet TAKE 1/2 TABLET BY MOUTH TWICE DAILY 05/28 completed Not Available Not Available Not Available Multiple Vitamin active Not Available Not Available Not Available Brilinta 90 mg tablet TAKE 1 TABLET BY MOUTH 2 TIMES DAILY. active Not Available Not Available No t Available Vitals Date Recorded Body height Body mass index (BMI) Body weight Systolic blood pressure Diastolic blood pressure Provider Name and Address Organization Details Last Updated DateTime 05/28/2024 165.1 cm 25 kg/m2 42263.86 g 125 mm[Hg] 72 mm[Hg] Payal Stern [facility] 16:14:12 Social History Question Answer Notes LastModified by Organizat ion Details LastModified Time Do You Have An Advance Directive? No Information n ot available 05/28/2024 What Is Your Level Of Alcohol Consumption? Occasional Information not available 05/28/2024 How Many Years Have You Consumed Alcohol? 47 Information not available 05/28/2024 Are You Blind Or Do You Have Difficulty Seeing? No Information n ot available 05/28/2024 What Is Your Level Of Caffeine Consumption? Moderate Information not available 05/28/2024 In The 14 Days Before Symptom Onset, Have You Had Close Contact With A Laboratory-confirm ed COVID-19 While That Case Was Ill? No Information n ot available 05/28/2024 In The 14 Days Before Symptom Onset, Have You Had Close Contact With A Person Who Is Under Investigation For COVID-19 While That Person Was Ill? No Information not available 05/28/2024 Have You Been To An Area Known To Be High Risk For COVID-19? No Information not available 05/28/2024 Are You Deaf Or Do You Have Serious Difficulty Hearing? No Information not available 05/28/2024 What Type Of Diet Are You Following? CARDIAC Information n ot available 05/28/2024 What Is The Highest Grade Or Level Of School You Have Completed Or The Highest Degree You Have Received? [id number] Information not available 05/28/2024 What Is Your Occupation? Retired Information not available 05/28/2024 Are There Any Guns Present In Your Home? Yes Information not available 05/28/2024 Do You Use Protection During Sex? No Information not available 05/28/2024 Do You Use Your Seat Belt Or Car Seat Routinely? Yes Information not available 05/28/2024 Do You Have Smoke And Carbon Monoxide Detectors In Your Home? Yes Information not available 05/28/2024 How Much Tobacco Do You Smoke? No Information not available 05/28/2024 Do You Feel Stressed (tense, Restless, Nervous, Or Anxious, Or Unable To Sleep At Night)? [id number] Information not available 05/28/2024 Do You Use Any Illicit Or Recreational Drugs? No Information not available 05/28/2024 Do You Use Sunscreen Routinely? Yes Information not available 05/28/2024 Have You Used IV Drugs? No Information not available 05/28/2024 Sex: Unknown Functional Status Question Answer Note LastModified by Organization D etails LastModified Time Are you able to walk? YESWOREST Information not available 05/28/2024 What is your exercise level? Moderate Information not available 05/28/2024 Mental Status None recorded. Family History Relationship Description Onset Age of this Age Resolved Age Notes LastModified by Organization Details LastModified Time Paternal Uncle Myocardial infarction Not available 05/28 16:14:18 Brother Hypercholest erolemia Not available 2024 16:14:18 Brother Heart disease Not available 2024 16:14:18 Father Hypercholest erolemia Not available 2024 16:14:18 Father Hypertensive disorder Not available 2024 16:14:18 Father Heart disease Not available 2024 16:14:18 Father Diabetes mellitus Not available 2024 16:14:18 Mother Hypercholest erolemia Not available 2024 16:14:18 Mother Disorder of lung Not available 2024 16:14:18 Mother Cerebrovascu lar accident Not available 16:14:18 Mother Hypertensive disorder Not available 2024 16:14:18 Mother Heart disease Not available 2024 16:14:18 Mother Diabetes mellitus Not available 2024 16:14:18 Paternal Aunt Cerebrovascu lar accident Not available 16:14:18 Maternal Grandmother Myocardial infarction Not available 05/28 16:14:18 Maternal Grandfather Myocardial infarction Not available 05/28 16:14:18 Medical History Condition Response Heart Problems Y Infertility Y Depression/ depression Y History of STI Y History of abnormal pap Y Headaches Y Hypertension Y GI Problems Y Gynecological History Statement/Question Response Abnormal Pap Yes Date of Last Mammogram 03/07/2024 Y Was last menstrual period normal Y STIs/STDs Y HPV Vaccine N Colposcopy Current Control Method Menopause If Post Menopausal, Age at Menopause 40 Are cycles usually normal Y Date of Last Colonoscopy Most Recent Bone Density Sexually Active? Y Menses Monthly N Age of first menstrual cycle 12 Date of Last Pap Smear 07/21/2020 Sexual Problems? N LMP Unknown 12/29/2018 Y Obstetrics History GPAL:G 0 P 0 0 0 0 Past Encounters Encounter ID Performer Location Encounter Start Date Encounter Closed Date Diagnosis/Indication Diagnosis SNOMED-CT Code Diagnosis ICD10 Code Diagnosis Note [id number] Tyson Gabriel MD [place] [address] [address] 05/28/2024 15:25:56 05/28/2024 17:04:27 Postmenopausal bleeding 19730634 N95.0 This patient is a 64-year-ol d female postmenopa usal bleeding, thickened endometriu m. We have agreed to hysterosco py D&C. She understand s the procedure. She understand s the risks, benefits, and alternativ es. She has completed the informed consent process and is ready to proceed. I spent over 30 minutes on the patient's care today. Health Concerns Section Related Observation LastModified by Organization Detai ls LastModified Time None Recorded Concern Status LastModified by Organization Details LastModified Time None Recorded Advance Directives Directive N: Payers Encounter Date Sequence Insurance Name Policy Number Policy Lemus Covered Member ID Lemus Member ID Guarantor Name 05/28/2024 1 [employer] (MEDICARE REPLACEMENT PPO) [id number] Flora Cuevas [id number] Flora Cuevas Notes Date Note Type Note Provider Name and Address Organization Details Recorded Time 05/28/2024 text/html this patient is a 64-year-old female presents for postmenopausal bleeding follow-up. She was seen by her primary care doctor for postmenopausal bleeding. Ultrasound was obtained. There is a thickened heterogeneous endometrial cavity. We discussed these findings in detail. We discussed ruling out endometrial cancer. We agreed to hysteroscopy D&C. The patient understands the procedure. The procedure was described to the patient in great detail. the patient also understands the risks. The risks were also explained in detail. She understands that injuries May occur during surgery. She understands these injuries can result in hospitalization, more surgery, and severe illness. She understands there is risk of hemorrhage and infection. she has nonspecific right ovarian mass. We agreed to repeat ultrasound to investigate the mass. Tyson Gabriel MD [address], [place], [address], [facility] 05/28/2024 16:57:40 OBGyn Episode No OBEpisode recorded.
--- OUTSIDE RECORDS SUMMARY | 2024-06-13 01:35 | XMS_ITS | Encounter Summary ---
Author Organization [facility] Address [address] [place] [address]. [place] [address] [place] [address] Care Team Providers Care Multimedia Instructional Designer Name Role Phone Ariana Rubio MD Primary Care Provider [phone] Antonella Bull NP Primary Care Provider [phone] Carla Bunch MD Primary Care Provider [phone] Alejandra Monahan RN Unavailable [phone] Encounter Details Date Type Department Care Team (Late st Contact Info) Description 05/27/2021 [employer] Message Enc [facility] Family & Internal Medicine [address] [phone] Lydia [facility] Provider order Social History Tobacco Use Types Packs/Day Years [...] have Coronavirus / COVID-19? No / Unsure 05/25/2021 2:50 PM ASSISTANT PRODUCE MANAGER documented as of this encounter Plan of Treatment Upcoming Encounters Date Type Department Care Team (Late st Contact Info) Description 06/29/2024 12:00 PM ASSISTANT PRODUCE MANAGER Office Visit [facility] [place] [address] [place] [address] Tiffany Olmos PA-C 3 [facility], [address] [place] [address] 07/11/2024 11:12 AM ASSISTANT PRODUCE MANAGER Hospital Encounter [facility] [address] [place] [address] Rosalio Ordaz MD [address] [address] 07/11/2024 11:12 AM ASSISTANT PRODUCE MANAGER - 07/11/2024 11:39 AM ASSISTANT PRODUCE MANAGER Surgery [facility] [address] [place] [address] [phone] Rosalio Ordaz MD [address] [place] [address] EGD 11/07/2024 10:00 AM CDT Office Visit [facility] Family & Internal Medicine [facility] [id number] [place] [phone] [place] Bunch [place] [id number] [place] [address] [id number] Scheduled Procedures Name Priority Associated Diagnoses Date/Ti me EGD Epigastric pain Nausea and vomiting, unspecified vomiting type Biliary colic 07/11/2024 11:12 AM ASSISTANT PRODUCE MANAGER documented as of this encounter Visit Diagnoses Not on filedocumented in this encounter Additional Health Concerns Infection Onset Date Last Indicated Resolved Time COVID-19 Rule Out 05/05/2023 05/05/2023 05/05/2023 8:51 AM ASSISTANT PRODUCE MANAGER COVID-19 Rule Out 05/05/2023 05/05/2023 05/05/2023 1:41 PM ASSISTANT PRODUCE MANAGER documented as of this encounter Care Teams Multimedia Instructional Designer Relationship Specialty Start Date End Date Ariana Rubio MD PCP - General INTERNAL MEDICINE 05/24/18 08/19/22 [place] [address] [address] [place], [place] [id number] PCP - General Nurse Practitioner Family 08/20/22 12/26/22 [place] [address] [address] [place], [place] [id number] PCP - General FAMILY PRACTICE 12/29/22 Alejandra Monahan, RN [address] [place] [address] Network Systems Administrator (Ambulatory) REGISTERED NURSE 03/20/24 03/20/24 documented as of this encounter
--- OUTSIDE RECORDS SUMMARY | 2024-06-13 01:35 | XMS_ITS | Encounter Summary ---
Author Organization [facility] Address [address] [place] [address]. [place] [address] [place] [address] Care Team Providers Care Internet Project Manager Name Role Phone Carla Bunch MD Primary Care Provider [phone] Encounter Details Date Type Department Care Team (Latest Contact Info) Description 03/21/2024 [employer] Message Enc [facility] Medical [facility] [address] [phone] Rosalio Ordaz MD [address] [place] [phone] Upcoming Abd Fluoro and EGD Social History Tobacco Use Types Packs/Day Years Used Date Smoking Tobacco: Never Passive Smoke Exposure: Never Smokeless Tobacco: Never Alcohol Use Standard Drinks/Week Comments Yes 0 (1 standard drink = 0.6 oz pur e alcohol) 1 drink per week [facility] Utilities Answer Date Recorded In [...] any time in the past 12 m [facility], were you homeless or living in a fci (including now)? No 03/19/2024 Comments No Sex [...] st Contact Info) Description 06/29/2024 12:00 PM VIROLOGY TEACHER Office Visit [facility] [place] [address] [place] [address] Tiffany Olmos PA-C 3 [facility], [address] [place] [address] 07/11/2024 11:12 AM VIROLOGY TEACHER Hospital Encounter [facility] [address] [place] [address] Rosalio Ordaz MD 3 [facility] [address] [place] [address] 07/11/2024 11:12 AM VIROLOGY TEACHER - 07/11/2024 11:39 AM VIROLOGY TEACHER Surgery [facility] [address] [place] [address] Rosalio Ordaz MD [address] [address] EGD 11/07/2024 10:00 AM CDT Office Visit [facility] Medical Group Family & Internal Medicine [facility] [address] [place] [address] [place] [address] [facility]. [address] [place] [phone] Scheduled Procedures Name Priority Associated Diagnoses Date/Ti me EGD Epigastric pain Nausea and vomiting, unspecified vomiting type Biliary colic 07/11/2024 11:12 AM VIROLOGY TEACHER documented as of this encounter Visit Diagnoses Not on filedocumented in this encounter Additional Health Concerns Assessment Noted Time PHQ-9 Depression Total Score: 4 11/07/19 24 8:56 AM CDT documented as of this encounter Care Teams Internet Project Manager Relationship Specialty [place] [address] [facility]. [address] [place] [address] PCP - General FAMILY PRACTICE 12/29/22 documented as of this encounter
[2024-06-13 06:35] VITALS: BP 137/61; PULSE 69; RESP 18; TEMP 36.6; O2SAT 97; BMI 24.7
[2024-06-13] MEDS: LACTATED RINGERS 1,000 ML 30 ML IV CONT (07:10)
[2024-06-13] MEDS: ACETAMINOPHEN 500 MG TABLET 1000 MG PO (07:15)
--- NOTE | 2024-06-13 07:43 | WPDANESEPPF ---
Anes - Initial Pre Proc Eval Procedure: Operation Date: 06/13/24 08:30 Proposed Procedures p Hysteroscopy Dilation and Curettage - Tyson Gar MD Date/Time: 06/13/24 07:43 Surgeon: Tyson Gar MD Pre Op Diagnosis: Post Menopausal Bleeding Patient Data Age: 64 Gender: F Height: 1.65 m Weight: 67.5 kg Last Vital Signs Temp 36.6 C 06/13/24 06:35 Pulse 69 06/13/24 06:35 Resp 18 06/13/24 06:35 BP 137/61 06/13/24 06:35 Pulse Ox 97 06/13/24 06:35 O2 Del Method Room Air 06/13/24 06:35 Allergies Allergy/AdvReac Type Severity Reaction Status Date / Time No Known Allergies Allergy Verified 06/13/24 07:19 Home Medications ?Medication ?Instructions ?Recorded ?Confirmed ?Type acetaminophen 650 mg 1,300 mg PO Q12H PRN pain 06/07/24 06/07/24 History tablet,extended release (Arthritis Pain Reliever) aspirin 81 mg tablet,delayed 81 mg PO DAILY 06/07/24 06/07/24 History release atorvastatin 40 mg tablet 40 mg PO QPM 06/07/24 06/13/24 History clopidogrel 75 mg tablet 75 mg PO DAILY 06/07/24 06/07/24 History docusate calcium 240 mg capsule 240 mg PO DAILY 06/07/24 06/13/24 History escitalopram oxalate 10 mg tablet 10 mg PO DAILY 06/07/24 06/13/24 History estradiol 1 mg tablet 0.5 mg PO DAILY 06/07/24 06/13/24 History lisinopril 10 mg tablet 10 mg PO DAILY 06/07/24 06/13/24 History metoprolol succinate 25 mg 25 mg PO DAILY 06/07/24 06/13/24 History tablet,extended release 24 hr multivitamin (Daily Multi-Vitamin 1 tablet PO DAILY 06/07/24 06/13/24 History tablet) progesterone micronized 100 mg 100 mg PO DAILY 06/07/24 06/13/24 History capsule rizatriptan 10 mg disintegrating 10 mg PO PRN migraine 06/07/24 06/07/24 History tablet Patient hx anesthesia problems: none Family hx anesthesia problems: none Results Review: All pre-operative results and documents have been reviewed as part of the pre-operative evaluation. [facility] Social History Social History Smoking status: Never smoker Alcohol use details: 1 per month Substance use: never Living arrangements: with family Additional living arrangements comments: Spiritual care concerns: No Anes - Eval Final PreProcedure Day of Procedure 06/13/24 07:43 Patient weight: normal Heart: regular rate and rhythm Lungs: clear to auscultation Airway: Mallampati scale class II Neurological: alert and oriented Last oral intake: >/= 8 hours ASA classification: III Emergent: no Anesthetic plan: proceed Anesthesia type and monitoring: general GIVS and standard monitoring Results Review: All pre-operative results and documents have been reviewed as part of the pre-operative evaluation. Informed Consent: The patient's anesthetic plan and its attendant risks and benefits were discussed with the patient/family/POA. Questions were solicited and answers provided to the satisfaction of the patient/family/POA.
--- NOTE | 2024-06-13 07:55 | WPDHPUPDATE1 ---
History and Physical Update Update Date/Time: 06/13/24 07:55 History and Physical has been reviewed, including an updated exam of the patient. There are NO changes in the patient's condition. Risks, benefits, and alternatives have been discussed and questions answered. Patient agrees to proceed with procedure.
[2024-06-13 09:02] VITALS: BP 145/64; PULSE 54; RESP 12; O2SAT 95
--- NOTE | 2024-06-13 09:09 | W.PM.PROC2 ---
Procedure Note - Detailed Date of Procedure 06/13/24 Pre-op Diagnosis Post Menopausal Bleeding Post-op Diagnosis Same Procedure Performed Hysteroscopy D&C Surgeon Tyson Gar MD Anesthesia MAC Indications Postmenopausal bleeding Findings Fibrous small mass of the endometrium, probably 1.5 cm., normal vulva, vagina, cervix. Description of Procedure the patient was taken the operating room. She was prepped and draped in the dorsal lithotomy position after induction of mac anesthesia. A speculum was placed in the vagina. The cervix was grasped with a tenaculum. The cervix was dilated about 1 cm. The hysteroscope was inserted. The intrauterine cavity and endocervix were evaluated. Hysteroscope was withdrawn. A medium-size curette was used to curettage all the surfaces were within the endometrial cavity. the sample was collected on Telfa and sent to pathology. The hysteroscope was reinserted and the above findings were noted. Patient tolerated the procedure well. The speculum and tenaculum were removed. She was taken recovery room in stable condition. Sponge lap and needle counts were correct x2. Estimated Blood Loss 40 Drains No Packing No Pathology Yes Complications No immediate complications Condition Stable Disposition PACU
[2024-06-13 09:30] VITALS: BP 136/49; PULSE 54; RESP 16; O2SAT 100
[2024-06-13] MEDS: fentaNYL CITRATE INJ (*CRX) 100 MCG/2 ML VIAL 25 MCG IV PUSH (09:35)
[2024-06-13] MEDS: oxyCODONE HCL (*CRX) 5 MG TAB IR PO (09:57)
[2024-06-13 10:00] VITALS: BP 129/41; PULSE 84; RESP 16
[2024-06-13 10:20] VITALS: BP 138/76; PULSE 45; RESP 16
== END 2024-06-13 10:25 | disposition home or self-care (01) ==
PROVIDERS: PCP Family Medicine; Visit Provider Obstetrics & Gynecology
PROC: 0U5B8ZZ Destruction of Endometrium, Via Natural or Artificial Opening Endoscopic (ICD-10-PCS; CPT 58563; principal; 2024-06-13 08:30)
DX: C54.1 Malignant neoplasm of endometrium (principal); I10 Essential (primary) hypertension; F32.A Depression, unspecified; Z79.82 Long term (current) use of aspirin; Z79.02 Long term (current) use of antithrombotics/antiplatelets; Z90.49 Acquired absence of other specified parts of digestive tract; Z82.49 Family history of ischemic heart disease and other diseases of the circulatory system
CPT/HCPCS: 58558; 88305; 88342; A9270; J2003; J2250; J2704; J3010; J7120